=== PATIENT | male | born 1945 | race Caucasian/White ===

== ENCOUNTER → 2018-05-05 | Outpatient (CLI) | payer OTHER, BC ==
[~2018-05-05] VITALS: Ht 180.3 cm; Wt 93.0 kg
[~2018-05-05] MED LIST: AMLODIPINE BESY10 MG PO; ASPIR 8181 MG PO; ATORVASTATIN CA40 MG PO; CLONIDINE HCL0.1 MG PO; GLUCOPHAGE XR500 MG PO; IPRAT-ALBUT 0.5-3 ML INH; IRBESARTAN-HCT1 EAC1 PO; LISINOPRIL40 MG PO; SPIRIVA18 MCG INH; SYNTHROID25 MC1 PO; [UNRECOGNIZED DRUG - OTHER] PO
--- NOTE | ~2018-05-05 | P ---
[facility] [place] [address] PROCEDURE REPORT Name: RICH COTA Room #: REG [facility].#: [id number] Admission: 05/05/18 ������������������ Attend Phys: Garfield Mcfarlane MD Discharge: ������������������ Date of : 47 Report #: [id number] THIS REPORT FOR: //name// CC: Garfield Juarez MD BRIEF HISTORY: The patient is a 72-year-old male with history of colon polyps. Last colonoscopy was 10 years ago. PREOPERATIVE DIAGNOSIS: History of colon polyps. POSTOPERATIVE DIAGNOSES: 1. Multiple colon polyps. 2. Sigmoid diverticulosis coli. MEDICATIONS: Deep sedation with propofol per Anesthesia. SPECIMENS: 1. Polyp at 20 cm. 2. Polyps x 2 at 70 cm. 3. Polyp #1 proximal ascending colon. 4. Polyp #2 proximal ascending colon. 5. Polyp, hepatic flexure x 2. ESTIMATED BLOOD LOSS: 5 mL. PROCEDURE: Colonoscopy to cecum and terminal ileum with snare polypectomy, biopsy, saline elevation of polyp and Joi ink injection. FINDINGS: Prior to propofol sedation, procedure of colonoscopy discussed with the patient as well as potential risks and its complications. He indicates he understands and desires to proceed. DESCRIPTION OF PROCEDURE: With the patient in left lateral decubitus position, digital examination was completed, which revealed no abnormalities. Subsequently, the Olympus video colonoscope was introduced into the rectum and advanced under direct vision to the cecum. This was done with minimal difficulty. Upon insertion of the scope, number of polyps identified. There was a 6-7 mm sessile polyp in the distal sigmoid at 20 cm noted upon insertion of the scope. This was removed by cold snare polypectomy. At 70 cm upon introduction of the scope, 2 diminutive polyps were seen and removed with biopsy forceps. The scope was then advanced into the cecum, which was identified by the appendiceal orifice and the ileocecal valve. I was also able to advance the scope into the ileum and visualized the distal segment of the terminal ileum. At that point, the scope was slowly withdrawn and careful circumferential views were obtained. As we withdrew the scope, a diminutive polyp was seen and [facility] [address] [place] [address] PROCEDURE REPORT Name: RICH COTA Room #: REG ALYSSA Arevalo.#: [id number] Admission: 05/05/18 ������������������ Attend Phys: Garfield Mcfarlane MD Discharge: ������������������ Date of : 47 Report #: [id number] removed with cold biopsy forceps in the very proximal ascending colon. Upon further inspection, on the opposite wall, was another polyp draped over a fold. However, this was a flat polyp and was about 10-12 mm in greatest dimension. It was elevated with saline, at which point the entire polyp was visualized. It was removed in a piecemeal fashion by cold snare polypectomy. Some remaining fragments along the edges were cleaned up with cold biopsy forceps. There was good hemostasis. The scope was further withdrawn and at the hepatic flexure, 2 more flat polyps were seen. They were in the range of 8-10 mm and reamed by hot snare polypectomy. At this point, Anesthesia reported that the patient had developed a complete heart block. He was also hypotensive. Therefore, the procedure was prematurely terminated. At that point, the scope was withdrawn and careful inspection was not undertaken. Because of his hypotension, there was a need to remove the scope. The patient developed heart block during the procedure. Procedure was prematurely terminated. He was taken to recovery area in good condition. DISPOSITION: The patient is undergoing further evaluation with regard to his heart block and further workup will be determined by Anesthesia Service. INSTRUCTIONS TO THE PATIENT AND FAMILY AT THE TIME OF DISCHARGE: Multiple polyps were found today including flat polyps. This is an incomplete colonoscopy as the procedure had to be prematurely terminated prior to completion of full colonoscopy. In view of the findings of multiple flat polyps, we will have the patient return in 6 months to repeat colonoscopy. Hopefully at that time, his cardiovascular status will be fully clarified and any needed interventions will take place. He will return to care of Dr. Orlin Juarez and return to see me as needed. ADDENDUM TO COLONOSCOPY REPORT BRIEF HISTORY: The patient is a 72-year-old male who presented for colonoscopy today due to history of colon polyps. We started his colonoscopy several hours ago and removed a number of polyps. However, he developed what appeared to be complete heart block during that procedure and developed hypotension. Therefore, the colonoscopy procedure was terminated prematurely and a complete inspection of colon was not able to be done. He was taken to recovery area and is stabilized and is now in sinus rhythm with normal vital signs. Therefore, it was decided after discussion with Anesthesia to take him back and complete the colonoscopy. PREOPERATIVE DIAGNOSIS: History of colon polyps. POSTOPERATIVE DIAGNOSES: Colon polyps. [address] [address] PROCEDURE REPORT Name: RICH COTA Room #: REG ALYSSA Murphy#: [id number] Admission: 05/05/18 ������������������ Attend Phys: Garfield Mcfarlane MD Discharge: ������������������ Date of : 47 Report #: [id number] MEDICATIONS: Deep sedation with propofol per Anesthesia. SPECIMEN: In addition to the polyps on the previous report: 1. Polyp at 80 cm. 2. Polyp at 40 cm, removed by cold snare polypectomy. 3. Polyps x 2 at 35 cm, removed with biopsy forceps. 4. Pedunculated polyp at 25 cm, removed by hot snare polypectomy. DESCRIPTION OF PROCEDURE: With the patient in left lateral decubitus position, digital examination was completed, which revealed no abnormalities. Subsequently, the Olympus video colonoscope was introduced in the rectum and advanced under direct vision to the region of the hepatic flexure. A previous polypectomy site was identified. We then slowly withdrew the scope from that area to obtain a full colonoscopy. As we withdrew the scope, no abnormalities were noted until we reached 80 cm, and at that point, a diminutive polyp was seen and removed with biopsy forceps. Scope was further withdrawn, and at 40 cm, a flat polyp was seen. It was about 8 mm in greatest dimension. It was removed completely with cold snare polypectomy. At 35 cm, 2 diminutive polyps were seen and removed with biopsy forceps. The scope was further withdrawn and at 20 cm, a 10-12 mm pedunculated polyp was seen and removed with hot snare polypectomy. In addition, the patient was noted to have a moderate diverticular disease of the sigmoid colon without endoscopic evidence of diverticulitis. Scope was further withdrawn. No additional abnormalities were seen. Upon retroflexion, no abnormalities were seen. Scope was withdrawn and the patient tolerated the procedure well. CONDITION OF THE PATIENT UPON DISCHARGE: Following procedure, the patient drowsy, arousable and conversant and will be discharged home when fully ambulatory. INSTRUCTIONS TO THE PATIENT AND FAMILY AT THE TIME OF DISCHARGE: The patient has now had a complete colonoscopy. Findings as noted above. Due to the multiple polyps, especially piecemeal removal of the polyp in the proximal ascending colon, we will have him return in 2 years for followup colonoscopy. He otherwise returned to care of Dr. Orlin Juarez. ��������������������������������������������� ���������������������������������������� By: ��������������������������������������������� 1048 1214 Garfield Mcfarlane MD /nt
--- NOTE | 2018-05-05 23:35 | EKG ---
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1945 Requested By: Cheryl Reveles Order Number: [id number] MD: Terrence Brown Measurements Intervals [place] Rate: 47 P: 0 ID: 106 QRS: -57 QRSD: 143 T: -15 QT: 553 QTc: 489 Interpretive Statements Junctional rhythm RBBB and LAFB Compared to ECG 02/20/2003 07:09:24 no significant changes Electronically Signed On 05-05-2018 23:35:07 CDT by Terrence Brown [email or web address] ��������������������������������������������� <ELECTRONICALLY SIGNED> ���������������������������������������� By: Terrence Brown MD ��������������������������������������������� 05/05/18 2335 [id number] Terrence Brown MD /EPI
--- NOTE | 2018-05-07 10:07 | PATH ---
[facility] [place] [address] PATHOLOGY RPT PROCEDURE Name: RICH COTA Room #: REG Jennifer M.Dalila.#: [id number] ������������������ Admission: 05/05/18 ������������������ Date of : 47 Discharge: Report #: [id number] Path Case #: [id number] [facility] Accession Number: [id number] . 01 Material submitted: . PART A: POLYP AT 20 CM PART B: BX OF POLYP AT 70CM X2 PART C: BX OF PROX ASCENDING COLON POLYP PART D: POLYP AT PROX ASCENDING COLON #2 PART E: POLYP AT HEPATIC FLEXURE X2 PART F: BX POLYP AT 80CM PART G: POLYP AT 40CM PART H: BX POLYP AT 35CM X2 PART I: POLYP AT 25CM . 01 Clinical history: . Pre-OP DX: Hx of polyps Post-OP DX: Colon polyps, diverticulosis . 02 Diagnosis: A. Polyp, at 20 cm, endoscopic biopsy: - Tubular adenoma. - Negative for high-grade dysplasia. . B. Polyp x2, at 70 cm, endoscopic biopsy: - Tubular adenoma identified in multiple fragments. - Negative for high-grade dysplasia. . C. Polyp, proximal ascending colon polyp, endoscopic biopsy: - Tubular adenoma. - Negative for high-grade dysplasia. . D. Polyp, proximal ascending colon #2, endoscopic biopsy: - Tubular adenoma. - Negative for high-grade dysplasia. . E. Polyp x2, at hepatic flexure, endoscopic biopsy: - Three fragments showing tubular adenoma. - Negative for high-grade dysplasia. . F. Polyp, at 80 cm, endoscopic biopsy: - Tubular adenoma. - Negative for high-grade dysplasia. . G. Polyp, at 40 cm, endoscopic biopsy; - Inflamed tubular adenoma. - Negative for high-grade dysplasia. . [facility] [address] [place] [address] PATHOLOGY RPT PROCEDURE Name: RICH COTA Room #: REG [facility] M..#: [id number] ������������������ Admission: 05/05/18 ������������������ Date of : 47 Discharge: Report #: [id number] Path Case #: [id number] H. Polyp x2, at 35 cm, endoscopic biopsy: - Tubular adenoma identified in two fragments. - Negative for high-grade dysplasia. . I. Polyp, at 25 cm, endoscopic biopsy: - 1.2 cm tubulovillous adenoma. - Negative for high-grade dysplasia. - Base of polyp showing unremarkable mucosa. . (IUV:johana; 05/06/2018) MBDalila/05/06/2018 . 02 Electronically signed: . Vandana Whaley MD, Pathologist NPI- [id number] . 01 Gross description: . A. Received in formalin labeled "Rich Cota, polyp at 20 cm," is a single segment of david soft tissue measuring 0.6 cm in maximum dimension. The specimen is entirely submitted in cassette A1. . B. Received in formalin labeled "Rich Cota, BX of polyp at 70 cm x2," are 5 segments of david soft tissue measuring 1.2 x 0.8 x 0.2 cm in aggregate dimensions and ranging from 0.3 to 0.4 cm in maximum dimension. The specimen is submitted entirely in cassette B1. . C. Received in formalin labeled "Rich Cota, BX of polyp at proximal ascending colon," are 2 segments of david soft tissue measuring 0.7 x 0.3 x 0.2 cm in aggregate dimensions and ranging from 0.3 to 0.4 cm in maximum dimension. The specimen is submitted entirely in cassette C1. . D. Received in formalin labeled "Rich Cota, polyp at proximal ascending colon 2," are multiple segments of david soft tissue measuring 2.0 x 0.5 x 0.2 cm in aggregate dimensions. The specimen is filtered and entirely submitted in cassette D1. . E. Received in formalin labeled "Rich Cota, polyp at hepatic flexure x2," are 3 segments of polypoid david soft tissue measuring 1.5 x 1.3 x 0.4 cm in aggregate dimensions. The surgical margins are inked black and the specimens are sectioned perpendicular to the margins and entirely submitted in cassettes E1 through E3. . F. Received in formalin labeled "Rich Cota, BX polyp at 80 cm," is a single segment of david soft tissue measuring 0.4 cm in maximum dimension. The specimen is entirely submitted in cassette F1. . G. Received in formalin labeled "Rich Cota, polyp at 40 cm," is a [facility] [address] [place] [address] PATHOLOGY RPT PROCEDURE Name: RICH COTA Room #: ROSALBA Murphy#: [id number] ������������������ Admission: 05/05/18 ������������������ Date of : 47 Discharge: Report #: [id number] Path Case #: [id number] 1.0 x 0.5 x 0.5 cm polypoid piece of david soft tissue. The margin is inked and the specimen is sectioned perpendicular to the margin and entirely submitted in cassette G1. . H. Received in formalin labeled "Rich Cota, BX polyp at 35 cm x2," are 2 segments of david soft tissue measuring 1.0 x 0.2 x 0.2 cm in aggregate dimensions and ranging from 0.3 to 0.7 cm in maximum dimension. The specimen is submitted entirely in cassette H1. . I. Received in formalin labeled "Rich Cota, polyp at 25 cm," is a 1.2 x 0.8 x 0.9 cm polypoid piece of david soft tissue. The margin is inked and the specimen is sectioned perpendicular to the margin and entirely submitted in cassette S1mefgdug I3. (TSD; 05/05/2018) TOB/TOB . 02 Pathologist provided ICD-10: D12.6, D12.2, D12.3 . 02 CPT . 455755, 866203, 487206, 996736, 072033, 336542, 951872, 175008, 724316 Specimen Comment: A courtesy copy of this report has been sent to Specimen Comment: [phone], . Specimen Comment: Report sent to / DR SANTOS Specimen Comment: A duplicate report has been generated due to demographic updates. Performed at: [address], [place], [place] [id number] MD Jerry Shields MD Phone: [phone] Performed at: [address] [id number] MD Vandana Whaley MD Phone: [phone]
== END | disposition home or self-care (01) ==
LOC: GI 08:18
DX: Z12.11 Encounter for screening for malignant neoplasm of colon (principal); Z86.010 Personal history of colon polyps; D12.7 Benign neoplasm of rectosigmoid junction; D12.5 Benign neoplasm of sigmoid colon; D12.4 Benign neoplasm of descending colon; D12.2 Benign neoplasm of ascending colon; D12.3 Benign neoplasm of transverse colon; K57.30 Diverticulosis of large intestine without perforation or abscess without bleeding; I10 Essential (primary) hypertension; E78.5 Hyperlipidemia, unspecified; Z87.891 Personal history of nicotine dependence; Z90.49 Acquired absence of other specified parts of digestive tract; Z98.890 Other specified postprocedural states; Z79.899 Other long term (current) drug therapy; Z85.118 Personal history of other malignant neoplasm of bronchus and lung; Z79.82 Long term (current) use of aspirin
CPT/HCPCS: 62110; 62900

== ENCOUNTER 2018-06-11 09:10 | Emergency (ER) | payer OTHER, BC ==
[~2018-06-11] VITALS: Ht 180.3 cm; Wt 86.2 kg
[2018-06-11 09:11] VITALS: BP 184/77
[2018-06-11] MEDS ORDERED: CARDURA1 MG PO (09:48)
[2018-06-11] MEDS ORDERED: BYSTOLIC10 MG PO (09:48)
[2018-06-11 09:55] LABS: ABSOLUTE NEUTROPHILS 13.9 thou/uL (1.4-8.2); BASOPHILS 0.2 % (0.0-2.0); EOSINOPHILS 0.2 % (0.0-3.0); HEMATOCRIT 41.6 % (42.0-52.0); HEMOGLOBIN 14.3 gm/dL (14.0-18.0); LYMPHOCYTES 7.9 % (24.0-44.0); MCH 28.9 pg (26.0-34.0); MCHC 34.4 g/dL (28.0-37.0); MCV 84.1 fL (80.0-100.0); MONOCYTES 5.6 % (1.0-8.0); PLATELET COUNT 171 thou/uL (150-400); POLYS 86.1 % (36.0-66.0); RBC 4.95 mil/uL (4.50-6.00); RDW 14.6 % (10.5-14.5); WBC 16.2 thou/uL (4.0-11.0)
[2018-06-11 09:58] LABS: ANION GAP 13 mmol/L (7-16); BUN 23 mg/dL (7-18); CALCIUM 9.2 mg/dL (8.5-10.1); CHLORIDE 102 mmol/L (98-107); CO2 26 mmol/L (21-32); CREATININE 1.1 mg/dL (0.7-1.3); GLUCOSE 161 mg/dL (74-106); POTASSIUM 3.7 mmol/L (3.5-5.1); SODIUM 141 mmol/L (136-145)
[2018-06-11 10:08] LABS: ALBUMIN 3.7 g/dL (3.4-5.0); APTT 28.8 Seconds (24.5-32.8); MAGNESIUM 1.9 mg/dL (1.8-2.4); PROTIME 9.9 Seconds (9.3-11.4); SGOT 26 U/L (15-37); SGPT 32 U/L (30-65); TOTAL BILIRUBIN 0.7 mg/dL (<0.1-1.0); TOTAL PROTEIN 7.7 g/dL (6.4-8.2); TROPONIN-I <0.06 ng/mL (<0.06)
[2018-06-11 10:17] LABS: BE(vivo) 0.5 mmol/L (-2 to +3); HCO3 24.5 mmol/L (22.0-26.0); PCO2 37.8 mmHg (35.0-45.0); PO2 50.5 mmHg (80.0-100.0)
--- NOTE | 2018-06-11 11:34 | EKG ---
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 : 1945 Requested By: Maurilio Hughes Order Number: [id number] MD: Eddie David Measurements Intervals [place] Rate: 72 P: 51 DC: 203 QRS: -45 QRSD: 145 T: 6 QT: 436 QTc: 478 Interpretive Statements Sinus rhythm RBBB and LAFB Compared to ECG 05/05/2018 10:47:41 Electronically Signed On 06-11-2018 11:34:36 CDT by Eddie David [email or web address] ��������������������������������������������� <ELECTRONICALLY SIGNED> ���������������������������������������� By: Eddie David MD ��������������������������������������������� 06/11/18 1134 0951 0 Eddie David MD /CHARISMA
[2018-06-11] MEDS ORDERED: AUGMENTIN 875-1 EACH PO (12:54)
[2018-06-11] MEDS ORDERED: PREDNISONE 20 M20 MG PO (12:54)
[2018-06-11 13:59] VITALS: BP 147/60
== END 2018-06-11 14:33 | disposition left against medical advice (07) ==
LOC: ER 09:10 → EROBS 12:06 → ER 12:06
PROVIDERS: Emergency Medicine
DX: J18.9 Pneumonia, unspecified organism (principal); J44.9 Chronic obstructive pulmonary disease, unspecified; R79.1 Abnormal coagulation profile; R74.0 Nonspecific elevation of levels of transaminase and lactic acid dehydrogenase [LDH]; R04.2 Hemoptysis; Z85.118 Personal history of other malignant neoplasm of bronchus and lung; R09.02 Hypoxemia; D72.829 Elevated white blood cell count, unspecified; I10 Essential (primary) hypertension; E78.5 Hyperlipidemia, unspecified; E11.9 Type 2 diabetes mellitus without complications; Z90.49 Acquired absence of other specified parts of digestive tract; Z87.891 Personal history of nicotine dependence

== ENCOUNTER → 2018-06-16 | Outpatient (CLI) | payer OTHER, BC ==
[~2018-06-16] MED LIST changes: +AUGMENTIN 875-1 EACH PO; +BYSTOLIC10 MG PO; +CARDURA1 MG PO; +PREDNISONE 20 M20 MG PO
== END ==
LOC: RAD 07:44
DX: J44.9 Chronic obstructive pulmonary disease, unspecified (principal); J98.11 Atelectasis; J18.9 Pneumonia, unspecified organism

== ENCOUNTER → 2018-06-19 | Outpatient (CLI) | payer OTHER, BC | LOC: RAD 08:17 | DX: R05 Cough (principal); J18.9 Pneumonia, unspecified organism ==

== ENCOUNTER → 2019-05-04 | Outpatient (CLI) | payer OTHER, BC | LOC: SJCVC 13:55 | DX: I45.2 Bifascicular block (principal); R00.1 Bradycardia, unspecified; R94.31 Abnormal electrocardiogram [ECG] [EKG]; I10 Essential (primary) hypertension; E78.00 Pure hypercholesterolemia, unspecified; E11.9 Type 2 diabetes mellitus without complications; J44.9 Chronic obstructive pulmonary disease, unspecified; I27.20 Pulmonary hypertension, unspecified; E03.9 Hypothyroidism, unspecified; Z87.891 Personal history of nicotine dependence; Z79.899 Other long term (current) drug therapy; Z79.84 Long term (current) use of oral hypoglycemic drugs; Z79.4 Long term (current) use of insulin ==

== ENCOUNTER → 2019-05-07 | Outpatient (CLI) | payer OTHER, BC ==
[~2019-05-07] MED LIST changes: +LEVAQUIN 750 M750 MG PO
== END ==
LOC: SJCVCIMAG 08:40
DX: I08.3 Combined rheumatic disorders of mitral, aortic and tricuspid valves (principal); I11.9 Hypertensive heart disease without heart failure; I27.20 Pulmonary hypertension, unspecified; R00.1 Bradycardia, unspecified; E78.00 Pure hypercholesterolemia, unspecified; J44.9 Chronic obstructive pulmonary disease, unspecified; I44.7 Left bundle-branch block, unspecified; Z87.891 Personal history of nicotine dependence

== ENCOUNTER 2019-05-13 10:53 | Emergency (ER) | payer OTHER, BC ==
[~2019-05-13] VITALS: Ht 180.3 cm; Wt 81.7 kg
[~2019-05-13 10:53] MED LIST changes: -LEVAQUIN 750 M750 MG PO
[2019-05-13 11:50] LABS: ABSOLUTE NEUTROPHILS 6.9 thou/uL (1.4-8.2); BASOPHILS 0.7 % (0.0-2.0); EOSINOPHILS 0.4 % (0.0-3.0); LYMPHOCYTES 16.2 % (24.0-44.0); MCH 29.8 pg (26.0-34.0); MCHC 34.1 g/dL (28.0-37.0); MCV 87.2 fL (80.0-100.0); MONOCYTES 5.9 % (1.0-8.0); PLATELET COUNT 175 thou/uL (150-400); POLYS 76.8 % (36.0-66.0); RBC 5.39 mil/uL (4.50-6.00); RDW 15.2 % (10.5-14.5)
[2019-05-13 11:57] LABS: ANION GAP 9 mmol/L (7-16); BUN 19 mg/dL (7-18); CALCIUM 9.4 mg/dL (8.5-10.1); CHLORIDE 102 mmol/L (98-107); CO2 29 mmol/L (21-32); CREATININE 1.3 mg/dL (0.7-1.3); GLUCOSE 132 mg/dL (74-106); POTASSIUM 4.1 mmol/L (3.5-5.1); SODIUM 140 mmol/L (136-145)
[2019-05-13 12:07] LABS: ALBUMIN 3.6 g/dL (3.4-5.0); SGOT 19 U/L (15-37); SGPT 37 U/L (30-65); TOTAL BILIRUBIN 0.9 mg/dL (<0.1-1.0); TOTAL PROTEIN 7.8 g/dL (6.4-8.2); TROPONIN-I <0.06 ng/mL (<0.06)
[2019-05-13 12:40] VITALS: BP 152/65
[2019-05-13] MEDS ORDERED: LEVAQUIN 750 M750 MG PO (16:32)
--- NOTE | 2019-05-14 08:49 | EKG ---
[facility] [place] [address] ELECTROCARDIOGRAM REPORT Name: RICH COTA Room #: DEP M.R.#: [id number] Admission: 05/13/19 Attend Phys: Discharge: 05/13/19 Date of : 47 Report #: [id number] THIS REPORT FOR: cc: Orlin Juarez MD, Stanley P. MD Lundgren,Jean Adrian MD [facility] ~ THIS REPORT FOR: //name// [facility] ED Test Date: 2019-05-13 Test Time: 11:42:32 Pat Name: RICH COTA Department: Room: Gender: Bio Medical Technician: [facility] : 1945 Requested By: Mica Rider Order Number: [id number] MD: Jean Fagan Measurements Intervals [place] Rate: 49 P: -36 SD: 126 QRS: -61 QRSD: 133 T: 4 QT: 523 QTc: 473 Interpretive Statements Sinus bradycardia RBBB and LAFB Compared to ECG 06/11/2018 09:51:42 Heart rate has slowed Electronically Signed On 05-14-2019 8:47:44 CDT by Jean Fagan [email or web address] <ELECTRONICALLY SIGNED> By: Jean Fagan MD, FACC 05/14/19 0847 1142 1142 Jean Fagan MD, [facility] /EPI
== END 2019-05-13 12:52 | disposition left against medical advice (07) ==
LOC: ER 10:53
PROVIDERS: Nurse Practitioner Family
DX: R04.2 Hemoptysis (principal); I10 Essential (primary) hypertension; E11.9 Type 2 diabetes mellitus without complications; E03.9 Hypothyroidism, unspecified; E78.5 Hyperlipidemia, unspecified; J44.9 Chronic obstructive pulmonary disease, unspecified; Z90.49 Acquired absence of other specified parts of digestive tract; Z90.01 Acquired absence of eye; Z87.891 Personal history of nicotine dependence

== ENCOUNTER 2019-05-13 14:52 | Emergency (ER) | payer OTHER, BC ==
[~2019-05-13] VITALS: Ht 180.3 cm; Wt 99.8 kg
[2019-05-13] MEDS ORDERED: LEVAQUIN 750 M750 MG PO (16:32)
[2019-05-13 16:46] VITALS: BP 145/70
== END 2019-05-13 16:48 | disposition home or self-care (01) ==
LOC: ER 14:52
DX: J18.9 Pneumonia, unspecified organism (principal); R74.0 Nonspecific elevation of levels of transaminase and lactic acid dehydrogenase [LDH]; I10 Essential (primary) hypertension; E11.9 Type 2 diabetes mellitus without complications; E78.5 Hyperlipidemia, unspecified; E03.9 Hypothyroidism, unspecified; J44.9 Chronic obstructive pulmonary disease, unspecified; Z90.49 Acquired absence of other specified parts of digestive tract; Z85.118 Personal history of other malignant neoplasm of bronchus and lung; Z90.01 Acquired absence of eye; Z87.891 Personal history of nicotine dependence

== ENCOUNTER → 2019-06-18 | Outpatient (CLI) | payer OTHER, BC ==
[~2019-06-18] MED LIST changes: +LEVAQUIN 750 M750 MG PO
== END ==
LOC: SJCVC 12:42
DX: R94.31 Abnormal electrocardiogram [ECG] [EKG] (principal); I45.10 Unspecified right bundle-branch block; I10 Essential (primary) hypertension; E78.00 Pure hypercholesterolemia, unspecified; E11.9 Type 2 diabetes mellitus without complications

== ENCOUNTER 2019-09-02 09:21 | Inpatient (IN) | payer OTHER, BC ==
[~2019-09-02] VITALS: Ht 177.8 cm; Wt 105.4 kg
--- NOTE | ~2019-09-02 | EKG ---
[facility] [place] [address] ELECTROCARDIOGRAM REPORT Name: RICH COTA Room #: 200-I ADM IN M.R.#: [id number] Admission: 09/02/19 Attend Phys: Piter Ontiveros MD Discharge: Date of : 47 Report #: [id number] THIS REPORT FOR: cc: Orlin Juarez MD, Stanley P. MD Epiphany, Epiphany MD ~ THIS REPORT FOR: //name// [facility] Test Date: 2019-09-05 Test Time: 08:11:11 Pat Name: RICH COTA Department: Room: [facility] Gender: M Quarter Doper: Dalila ABBOTT : 1945 Requested By: Thomas Cervantes Order Number: [id number] MD: Measurements Intervals [place] Rate: 73 P: OR: QRS: -55 QRSD: 154 T: -40 QT: 508 QTc: 560 Interpretive Statements Atrial flutter RBBB and LAFB Compared to ECG 09/04/2019 17:32:58 Atrial fibrillation no longer present [email or web address] By: 0811 0 Epiphany Epiphany, /EPI
[2019-09-02 09:25] VITALS: BP 129/64
[2019-09-02 09:57] LABS: HCO3 26.1 mmol/L (22.0-26.0); PCO2 63.8 mmHg (35.0-45.0); PO2 78.5 mmHg (80.0-100.0)
[2019-09-02 10:00] LABS: HEMATOCRIT 47.8 % (42.0-52.0); HEMOGLOBIN 15.2 gm/dL (14.0-18.0); MCH 29.7 pg (26.0-34.0); MCHC 31.8 g/dL (28.0-37.0); MCV 93.6 fL (80.0-100.0); PLATELET COUNT 160 thou/uL (150-400); RBC 5.11 mil/uL (4.50-6.00); WBC 18.6 thou/uL (4.0-11.0)
--- NOTE | 2019-09-02 10:15 | NUR ---
UNABLE TO GET ADDITIONAL BLOOD NEEDED CALLED LAB
[2019-09-02 10:47] LABS: ABSOLUTE NEUTROPHILS 16.7 thou/uL (1.4-8.2); ANISOCYTOSIS 1+; PLATELET ESTIMATE NORMAL
[2019-09-02 10:53] LABS: ANION GAP 11 mmol/L (7-16); BUN 74 mg/dL (7-18); CHLORIDE 100 mmol/L (98-107); CO2 29 mmol/L (21-32); CREATININE 2.8 mg/dL (0.7-1.3); GLUCOSE 147 mg/dL (74-106); POTASSIUM 4.2 mmol/L (3.5-5.1); SODIUM 140 mmol/L (136-145)
[2019-09-02 11:02] LABS: ALBUMIN 3.3 g/dL (3.4-5.0); DIRECT BILIRUBIN 0.4 mg/dL (<0.1-0.2); SGOT 191 U/L (15-37); SGPT 189 U/L (30-65); TOTAL BILIRUBIN 0.9 mg/dL (0.2-1.0); TOTAL PROTEIN 7.4 g/dL (6.4-8.2); TROPONIN-I <0.06 ng/mL (<0.06)
[2019-09-02 11:26] LABS: BE(vivo) -3.9 mmol/L (-2 to +3); HCO3 24.2 mmol/L (22.0-26.0); PCO2 55.6 mmHg (35.0-45.0); PO2 107.6 mmHg (80.0-100.0); sO2 97.1 % (92.0-98.0)
[2019-09-02 11:27] LABS: pH 7.256 (7.360-7.450)
[2019-09-02] MEDS ORDERED: EDARBYCLOR 40-1 EAC1 PO (11:57)
[2019-09-02 13:40] LABS: CHOLESTEROL 98 mg/dL (<200); HDL CHOLESTEROL 20 mg/dL (>40); LDL CHOLESTEROL 35 mg/dL (<100); TC:HDL 4.9 Ratio (Not establshd); TRIGLYCERIDE 218 mg/dL (<150); VLDL 44 mg/dL (<40)
--- NOTE | 2019-09-02 15:38 | EKG ---
[facility] [place] [address] ELECTROCARDIOGRAM REPORT Name: RICH COTA Room #: 170-12 ADM IN M.R.#: [id number] Admission: 09/02/19 Attend Phys: Piter Ontiveros MD Discharge: Date of : 47 Report #: [id number] THIS REPORT FOR: cc: Orlin Juarez MD, Stanley P. MD Couchonnal, Luis F. MD ~ THIS REPORT FOR: //name// [facility] ED Test Date: 2019-09-02 Test Time: 09:53:52 Pat Name: RICH COTA Department: Room: 170 Gender: M Tilesetter: kf : 1945 Requested By: Yuly Zaragoza Order Number: [id number] MD: Eddie David Measurements Intervals [place] Rate: 41 P: ND: QRS: -45 QRSD: 164 T: 3 QT: 633 QTc: 523 Interpretive Statements Sinus rhythm RBBB and LAFB Compared to ECG 05/13/2019 11:42:32 Electronically Signed On 09-02-2019 15:38:17 CDT by Eddie David [email or web address] <ELECTRONICALLY SIGNED> By: Eddie David MD 09/02/19 1538 0953 0953 Eddie David MD /EPI
[2019-09-02 21:39] VITALS: BP 116/72
[2019-09-02 22:02] VITALS: BP 134/55
[2019-09-02 22:45] VITALS: BP 103/58
[2019-09-03] VITALS (50 sets, daily range): BP systolic 92–132; BP diastolic 37–56
--- NOTE | 2019-09-03 00:05 | NUR ---
PT ADMITTED FROM ED. PT WAS BROUGHT TO ED BY HIS DAUGHTER SAMMI THAT HE LIVES WITH. SHE REPORTED THAT HE HAD BEEN SOA FOR A WEEK AND WAS INITIALLY REFUSING TO GO TO HOSPITAL. DAUGHTER REPORTS THAT PT EQUATES WITH THE HOSPITAL DUE TO HIS BEING FREQUENTLY ILL AND IN HOSPITALS AND SHE . DAUGHTER REPORTS PT CAN BE NONCOMPLIANT. DAUGHTER IS A RESPIRATORY THERAPIST BY EDUCATION BUT NOT PRACTICING, SHE REPORTED HAVING EPILEPSY. PT IS DISHEVLED, CLOTHES WERE DIRTY AND WET WHEN HE ARRIVED IN ED, AND HIS L ARTIFICIAL EYE WAS MATTED. WHEN IN ED O2 SAT ON ROOM AIR WAS 59%, HE WAS PLACED ON BIPAP WITH AN ATTEMPT TO WEAN TO 6LNC BUT O2 SAT DECREASED TO 75%. NO FEVER. PT RECEIVED ANTIBIOTICS, LASIX IN ED. PT REPORTS PREVIOUS TESTS FOR COVID THAT RESULTED NEGATIVE AND DAUGHTER CONFIRMED. PT AOX3, POOR HISTORIAN, PT REPORTS VERY [place], PT ON BIPAP DIFFICULT TO COMMUNICATE AND SOA WITH TALKING AND MOVEMENT. PT DID ASSIST WITH REPOSITIONING IN THE BED. EXTREMITIES COOL TO THE TOUCH, PALE SKIN TONE. SKIN INTACT. ED NURSE REPORTED PT CHOKED AFTER DRINK OF WATER, RECOMMENDS PT HAS SPEECH CONSULT AND PROVIDER SUPERCHARGE REPAIR SUPERVISOR WILL BE NOTIFIED. MED HX CHF, HTN, PT REPORTS LOW HR HISTORY, L ARTIFICIAL EYE, DM, COPD, R UPPER LOBECTOMY DUE TO CANCER, PT WAS A FROMER SMOKER. SCDS AND BED ALARM ON.
--- NOTE | 2019-09-03 03:01 | NUR ---
PT NOTED TO BE USING INCREASED ACCESSORY MUSCLES WHILE BREATHING ON BIPAP, O2 SAT 88. WAVEFORM CONSISTENT. RESPIRATORY CONTACTED. CHARGE AND DIGITAL STRATEGY DIRECTOR UPDATED, HEDGE FUND TRADER UPDATED. NEW ORDERS OBTAINED.
[2019-09-03 03:45] LABS: HCO3 25.3 mmol/L (22.0-26.0); PCO2 53.1 mmHg (35.0-45.0); sO2 89.5 % (92.0-98.0)
[2019-09-03 03:46] LABS: pH 7.296 (7.360-7.450)
--- NOTE | 2019-09-03 04:15 | NUR ---
PATIENT TRANSFERED FROM BY ELENI BEST. ACCOMPANIED BY RT AND LUCILA VASQUEZ. PT WAS BROUGHT DOWN ON BIPAP, TACHPYNIC IN THE 40'S, SATING 88-91%. PT TRANSFERED TO ICU BED. ATTACHED TO MONITOR. ASSESSED PER ICU PROTOCOL. DR. NICOLAS CONSULTED, CRITICAL ABG'S REPORTED. NEW ORDERS OBTAINED.
--- NOTE | 2019-09-03 04:29 | NUR ---
PT VERBALIZED UNDERSTANDING OF TRANSFER TO ICU, PTS DAUGHTER SAMMI CALLED AND PROVIDED UPDATE RE NEED FOR TRANSFER TO ICU FOR CONTINUED MONITORING AND RESPIRATORY NEEDS. REPORT PROVIDED TO ICU NURSE. ABG RESULTS WILL BE CALLED BY ICU NURSE TO PULMONARY DURING CONSULT NOTIFICATION.
[2019-09-03 06:21] LABS: HEMOGLOBIN 14.6 gm/dL (14.0-18.0); MCH 29.6 pg (26.0-34.0); MCHC 32.6 g/dL (28.0-37.0); MCV 90.8 fL (80.0-100.0); RBC 4.95 mil/uL (4.50-6.00); RDW 17.4 % (10.5-14.5)
[2019-09-03 06:38] LABS: CALCIUM 7.7 mg/dL (8.5-10.1); CREATININE 2.6 mg/dL (0.7-1.3); POTASSIUM 4.2 mmol/L (3.5-5.1)
--- NOTE | 2019-09-03 08:16 | EKG ---
[facility] [place] [address] ELECTROCARDIOGRAM REPORT Name: RICH COTA Room #: 243-P ADM IN M.R.#: [id number] Admission: 09/02/19 Attend Phys: Piter Ontiveros MD Discharge: Date of : 47 Report #: [id number] THIS REPORT FOR: cc: Orlin Juarez MD, Stanley P. MD Lundgren, Craig H. MD [facility] ~ THIS REPORT FOR: //name// [facility] Test Date: 2019-09-03 Test Time: 07:17:50 Pat Name: RICH COTA Department: Room: [facility] Gender: M Fructose Loader: : 1945 Requested By: Kathrin Cardozo Order Number: [id number] MD: Jean Fagan Measurements Intervals [place] Rate: 38 P: 32 RI: 194 QRS: -62 QRSD: 149 T: -1 QT: 590 QTc: 470 Interpretive Statements Sinus bradycardia Right bundle branch block Baseline wander in lead(s) V1 Compared to ECG 09/02/2019 09:53:52 RI interval has shortened Electronically Signed On 09-03-2019 8:16:21 CDT by Jean Fagan [email or web address] <ELECTRONICALLY SIGNED> By: Jean Fagan MD, [facility] 09/03/1916 6 6 Jean Fagan MD, [facility] /EPI
--- NOTE | 2019-09-03 10:26 | NUR ---
CALLED PATIENT'S DAUGHTER BACK SINCE I HAD MISSED HER CALL, DAUGHTER KHUSHI EXPRESSED HER FRUSTRATION REGARDING NOT BEING ABLE TO COME VISIT HER FATHER. I EXPLAINED TO HER THE SITUATION AND THAT AT THIS TIME NO VISITORS BEING ALLOWED TO ICU DUE TO THE PANDEMIC, STILL DIDN'T SEEM TO UNDERSTAND, GAVE HER THE PRIVACY CODE, ANSWERED HER QNS, AND UPDATED HER ON HER FATHER'S CONDITION. SHE STATED SHE WOULD BE CALLING EVERY 1.5-2HRS.
--- NOTE | 2019-09-03 10:41 | NUR ---
DAUGHTER KHUSHI CALLED BACK CONCERNED ABOUT SCHEDULED BRONCHOSCOPY STATING LAST TIME HER FATHER HAD COLONOSCOPY THEY HAD TO REVERSE ANAESTHETIC DUE TO PATIENT HAVING LOW HR AND BP, I TOLD HER I WOULD LET THE PHYSICIAN KNOW.
--- NOTE | 2019-09-03 11:14 | NUR ---
DR NICOLAS NOTIFIED OF PATIENT'S +BLOOD CULTURES AND CHANGED ANTIBIOTICS AND STATED WILL CALL PATIENT'S DAUGHTER WITH UPDATES. DR. PELAEZ ALSO ROUNDED ABOUT 5MINS AFTER MARIA ISABEL AND WAS ALSO NOTIFIED OF PATIENT'S BLOOD CULTURES AND ASLO STATED WILL UPDATE DAUGHTER.
--- NOTE | 2019-09-03 14:38 | NUR ---
PT ADMITTED RELATED TO SOA FOR A WEEK O2 RA 52% HR CHANDU. CM REVIEWED CHART AND SPOKE WITH CARE TEAM. CM CALLED AND SPOKE WITH PT'S DTR KHUSHI . SHE INDICATED THAT PT RESIDES IN A HOUSE WITH NO STEPS TO ENTER AND NONE INSIDE. DTR INDICATED THAT SHE LIVES [place] HIM. 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 SHE INDICATED PT HAS AN OLD NEBULIZER FOR HOME USE THAT HE CLEANS WITH LYSOL. SHE INDICATED NO OTHER RESP EQUIPTMENT BUT THAT DR. SANTOS HAD BEEN SPEAKING WITH THEM ABOUT MAYBE GETTING PT HOME O2. DTR INDICATED NO HH OR POST ACUTE CARE STAYS. CM O FOLLOW INDICATED WITH DC PLANNING. PT IS ON BIPAP AND PULM HAD MADE MENTION OF POSSIBLE BRONCH. CM TO FOLLOW INDICATED WITH DC PLANNING.
--- NOTE | 2019-09-03 15:07 | NUR ---
PATIENT'S DAUGHTER CALLED AGAIN WHEN I WAS ON LUNCH, I RETURNED HER CALL WHEN I GOT BACK AND UPDATED AND CONFIRMED THAT BOTH DR. PELAEZ AND DR. NICOLAS HAD CALLED AND UPDATED HER. NO CHANGES ON PATIENT ASSESSMENT, STABLE ON THE BIPAP AND VITALS STABLE AND HAS DENIED PAIN. WILL CONTINUE WITH POC.
[2019-09-04] VITALS (19 sets, daily range): BP systolic 10–126; BP diastolic 35–60
[2019-09-04 04:29] LABS: HEMATOCRIT 46.3 % (42.0-52.0); HEMOGLOBIN 15.3 gm/dL (14.0-18.0); MCH 29.2 pg (26.0-34.0); MCHC 33.1 g/dL (28.0-37.0); MCV 88.2 fL (80.0-100.0); RBC 5.25 mil/uL (4.50-6.00); RDW 16.7 % (10.5-14.5)
[2019-09-04 04:32] LABS: CALCIUM 7.6 mg/dL (8.5-10.1); CREATININE 1.9 mg/dL (0.7-1.3); POTASSIUM 3.8 mmol/L (3.5-5.1)
--- NOTE | 2019-09-04 05:20 | NUR ---
ASSESSMENTS CHARTED, MEDS CHARTED GIVEN. PATIENT RESTING EASY IN BED DURING SHIFT. DENIES PAIN. OXYGEN SATURATION DECREASES WHEN TALKING. SCDS IN PLACE. ANKLES +2 EDEMA. C[place] PATENT, TO DEPENDENT DRAINAGE. NPO DUE TO BIPAP. PLAN OF CARE IS TO HAVE A BEDSIDE BRONCHOSCOPY TODAY TO REMOVE A MUCUS PLUG. SPUTUM SAMPLES REQUESTED. FALL PRECAUTIONS IN PLACE.
--- NOTE | 2019-09-04 10:36 | NUR ---
Pt is progressing towards goals. Pt remains stable on BiPAP and maintains oxygen saturation. Per Dr Rodarte, we will move forward with weaning off BiPAP and trial nasal cannula. Bronochoscopy was done this AM and mucous plug was removed, patient tolerated well. Will continue to monitor.
--- NOTE | 2019-09-04 10:36 | NUR ---
PATIENT'S DAUGHTER CALLED AND UPDATED BY RN AND QNS ANSWERED AND CONCERNS ADDRESSED AND WILL CALL HER IN CASE OF ANY EMERGENCIES AND/OR IF PATIENT IS TRANSFERRED OUT OF ICU SO SHE CAN VISIT HIM.
--- NOTE | 2019-09-04 14:41 | 2DMMODE ---
[facility] [place] [address] 2 D/M-MODE ECHOCARDIOGRAM Name: RICH COTA Room #: 243-P ADM IN M.R.#: [id number] Admission: 09/02/19 Attend Phys: Piter Ontiveros MD Discharge: Date of : 47 Report #: [id number] THIS REPORT FOR: cc: Orlin Juarez MD, Stanley P. MD Mancuso, Gerald M. MD [facility] ~ APPROVED REPORT Study performed: 09/04/2019 13:14:22 EXAM: Comprehensive 2D, Doppler, and color-flow Echocardiogram Patient Location: ICU Room #: 243 Status: routine BSA: 2.22 HR: 59 bpm BP: 123/35 mmHg Rhythm: Bradycardia Other Information Study Quality: Technically Difficult Technically limited study due to inability to position patient. Indications Aortic Valve Disease Diabetes Dyspnea Hypertension/HDD 2D Dimensions RVDd: 41.64 mm LVOT Diam: 22.30 (18-24mm) Volumes Left Atrial Volume (Systole) Single Plane 4CH: 76.86 mL Single Plane 2CH: 67.10 mL LA ESV Index: 36.00 mL/m2 Aortic Valve AoV Peak Bong.: 2.58 m/s AO Peak Gr.: 26.59 mmHg LVOT Max P.19 mmHg AO Mean Gr.: 13.63 mmHg LVOT Mean P.07 mmHg AO V2 Mean: 1.70 m/s LVOT Max V: 1.03 m/s [facility] [address] [place] [address] 2 D/M-MODE ECHOCARDIOGRAM Name: RICH COTA Room #: 243-P [facility] IN M.R.#: [id number] Admission: 09/02/19 Attend Phys: Piter Ontiveros MD Discharge: Date of : 47 Report #: [id number] AO V2 VTI: 58.75 cm LVOT Mean V: 0.65 m/s TRACE (VTI): 1.61 cm2 LVOT V1 VTI: 24.18 cm TRACE Vmax: 1.55 cm2 SV (LVOT): 94.39 mL Mitral Valve E/A Ratio: 1.1 MV Decel. Time: 269.50 ms MV E Max Bong.: 1.36 m/s MV A Bong.: 1.20 m/s MV PHT: 78.15 ms IVRT: 69.20 ms Pulmonary Vein P Vein S: 0.44 m/s P Vein A: 0.23 m/s P Vein D: 0.73 m/s P Vein A Dur.: 110.7 msec P Vein S/D Ratio: 0.60 Tricuspid Valve TR Peak Bong.: 3.48 m/s TR Peak Gr.: 48.37 mmHg PA Pressure: 58.00 mmHg Left Ventricle The left ventricle is normal size. There is normal left ventricular wall thickness. Left ventricular systolic function is hyperdynamic. LVEF is 60 -65% This study is not technically sufficient to allow evaluation of the LV diastolic function. Right Ventricle The right ventricle is normal size. The right ventricular systolic function is normal. Atria Left atrium is dilated. Right atrium is dilated. Aortic Valve The aortic valve is normal in structure. Aortic valve is calcified. No aortic regurgitation is present. Mild aortic stenosis. Mitral Valve The mitral valve is normal in structure. Trace mitral regurgitation. No evidence of mitral valve stenosis. Tricuspid Valve The tricuspid valve is normal in structure. There is mild tricuspid [facility] [address] [place] [address] 2 D/M-MODE ECHOCARDIOGRAM Name: RICH COTA Room #: 243-P ADM IN M.R.#: [id number] Admission: 09/02/19 Attend Phys: Piter Ontiveros MD Discharge: Date of : 47 Report #: [id number] regurgitation. Estimated PAP 58 mmHg. There is moderate pulmonary hypertension. Pulmonic Valve The pulmonary valve is normal in structure. There is no pulmonic valvular regurgitation. Great Vessels The aortic root is normal in size. IVC is not well visualized. Pericardium There is no pericardial effusion. <Conclusion> The left ventricle is normal size. LVEF is 60 -65% This study is not technically sufficient to allow evaluation of the LV diastolic function. The right ventricle is normal size. Left atrium is dilated. Right atrium is dilated. The aortic valve is normal in structure. Aortic valve is calcified. Mild aortic stenosis. Trace mitral regurgitation. There is mild tricuspid regurgitation. Estimated PAP 58 mmHg. There is moderate pulmonary hypertension. The aortic root is normal in size. There is no pericardial effusion. <ELECTRONICALLY SIGNED> By: Thomas Cervantes MD, FACC 09/04/19 1441 144 144 Thomas Cervantes MD, FACC /INF
--- NOTE | 2019-09-04 16:01 | NUR ---
PT HAD BRONCH DONE THIS DAY AND TOLERATED IT WELL PT HAD ECHO WELL. OT ASSESSED PT AND INDICATED ON GOING ASSESSEMT INDICATED. PT VARIENCED PT HAD STILL BEEN PN BIPAP AT TIME OF VISIT. THEY WILL SEE AGAIN TOMORROW. CM TO FOLLOW INDICATED WITH DC PLANNING.
--- NOTE | 2019-09-04 16:53 | NUR ---
Patient went into afib rvr at 1530. Patient is tachycaradic, running in the 110's and then 100's. Dr Cervantes was paged and ordered an amiodarone bolus and gtt. He also ordered a stat ekg and a morning ekg. Patients daughter, Barbara, visited today and was updated of the patient's plan. Patient is progressing toward goals of maintaining oxygen saturation.
[2019-09-05] VITALS (8 sets, daily range): BP systolic 102–128; BP diastolic 40–77
[2019-09-05 00:06] LABS: HIV ANTIBODY Non Reactive (Non Reactive)
--- NOTE | 2019-09-05 01:57 | NUR ---
ASSESSMENT DOCUMENTED.PT BEEN RESTING IN NO ACUTE DISTRESS.A/OX4 WITH FROGETFULLNESS AD=ND INTERMITTENT CONFUSION,TALKS TO SELF AT TIMES.ON AMIODARONE DRIP AT0.5MG/HR,HR IN 80S AND SOMETIMES SPIKES TO TACHY.IN AND OUT OF AFIB TO SINUS ARRYTHMIAS.O2 AT 5LITERS PNC.HAD BIPAP FOR 30MINUTES,COULD NOT TOLERATE IT.DENIES PAIN OR ANY DISTRESS AT THIS TIME.PT TO MOVE TO CCU RM 200. WILL CONT TO MONITOR PER POC.
--- NOTE | 2019-09-05 02:42 | NUR ---
Pt became very agitated and argumentative when he was told that he would be moving to another room in the hospital. He would not redirect, we spoke to his daughter, who spoke to her brother, and it was agreed that the pt was to stay in the hospital, that they would not come to get him this morning. He finally did calm down, after receiving haldol and was transferred to 200 with all his belongings.
--- NOTE | 2019-09-05 02:53 | NUR ---
PT MOVED TO CCU AT THIS TIME.PT VERY AGITATED ABOUT THE MOVE TO ANOTHER UNIT,THREATENING TO LEAVE AGAINST MEDICA ADVISE.DAUGHTER KHUSHI WAS NOTIFIED OF THE MOVE,TALKED WITH THE PATIENT ON THE PHONE.ELECTRICAL SYSTEMS ENGINEER ORDERED MEDS TO HELP CALM PATIENT DOWN.MEDS GIVEN ORDERED.PT CALM AT THE TIME OF THE TRANSFER.
--- NOTE | 2019-09-05 05:34 | NUR ---
ASSESSMENTS CHARTED, MEDS CHARTED GIVEN. PATIENT AND FAMILY WERE VERY UPSET AT START OF SHIFT CONCERNING CARES DURING THE DAY. FAMILY WAS CONCERNED PATIENTS NEEDS WERE NOT BEING TAKEN CARE OF IN A TIMELY MANNER. BOTH PATIENT AND FAMILY WERE REASSURED THAT IT PROGRAMMER WOULD BE ATTENTIVE TO THE PATIENTS NEEDS. PATIENT SAT IN THE RECLINER UNTIL TIME FOR BED. PATIENT WAS IN SINUS ARRHYTHMIA TO SINUS FLUTTER DURING SHIFT. FEET AND LEGS STILL EDEMATOUS. ON 6 LITERS NC. LUNGS ARE DIMINISHED AND COARSE. GOOD COUGH EFFORT. CLEVEL[place] IN PLACE, TO DEPENDENT DRAINAGE. DENIED PAIN. FALL PRECAUTIONS IN PLACE DURING SHIFT.
--- NOTE | 2019-09-05 05:46 | NUR ---
PATIENT ARRIVED FROM ICU AROUND 0300. ASSESSMENT CHARTED. MEDS CHARTED GIVEN. PATIENT CONTINUED ON 6 LITERS OXYGEN, LUNGS ARE COARSE AND DIMINISHED WITH NON-PRODUCTIVE COUGH. CLEVELAND IN PLACE STAT LOCK REPLACE IMMEDIATELY TAB WAS DISCONNECTED. PATIENT ON AMIO DRIP. PATIENT AFIB ON TELEMETRY. ALERT AND ORIENTED. HAS LEFT PROSTHETIC EYE. FALL PRECAUTIONS IN PLACE DURING SHIFT.
[2019-09-05 09:54] LABS: CALCIUM 7.6 mg/dL (8.5-10.1); CREATININE 1.8 mg/dL (0.7-1.3); POTASSIUM 3.6 mmol/L (3.5-5.1)
--- NOTE | 2019-09-05 16:03 | NUR ---
ASSUMED CARE AT CHANGE OF SHIFT. ALERT X3 WITH CONFUSION, COMPLAINT WITH CARES, DENIES PAIN, DENIES SOB, SINUS CHANDU IN THE LOW 40'S ASYMPTOMATIC. CARDIOLOGY COLLAR RUNNER SANDER NOTIFIED. BM TODAY. STAND BY ASSIST TO TOILET. COARSE LUNGS SOUNDS TO ALL LOBES, 6L NASAL CANNULA. PT AND DTR ASKING WHEN WILL HE DC HOME. CM WILL FOLLOW UP ON DC MEDICAL RESEARCH SCIENTIST. FALL PRECATIONS IN PLACE. PERSONAL ITEMS AND CALL LIGHT IN REACH.
[2019-09-06 04:25] VITALS: BP 141/87
--- NOTE | 2019-09-06 05:21 | NUR ---
ASSUMED CARE FROM DAY SHIFT PT CALM COOPERATIVE NO CONCERNS VOICED . AFTER 0200 PT STATES HE DO NOT UNDERSTAND WHY HE KEPT HERE IN HOSPITAL AND HAVE NOT SEEN A DOCTOR. EXPLAIN PT THAT HE HAD SEEN THE HEART DOCTOR AND HOSPTIALIST. PT VERY AGRUMENTATIVE AND DAUGHTER CALLED AND VERY RUDE AND AGRUMENTIVE ALSO. CALMLY EXPLAINED TO PT AND DAUGHTER THAT IT IS UP TO THE DOCTOR IF HE CAN GET DISCHARGE AND THAT I DID NOT HAVE THE POWER TO DO SO. DNEIS SOA , BUT AUDIBLE RHNONCI NOTED AND PT IS ON 02 , AERONAUTICAL DESIGN ENGINEER SHOWS NSR . WILL CONITINUE WITH CURRENT PLAN OF CARE AND WILL REPORT CHANGES.
[2019-09-06 07:55] VITALS: BP 129/58
[2019-09-06 08:29] LABS: HEMATOCRIT 42.9 % (42.0-52.0); HEMOGLOBIN 13.9 gm/dL (14.0-18.0); MCH 29.1 pg (26.0-34.0); MCHC 32.5 g/dL (28.0-37.0); MCV 89.6 fL (80.0-100.0); RBC 4.78 mil/uL (4.50-6.00); RDW 17.5 % (10.5-14.5); WBC 13.8 thou/uL (4.0-11.0)
[2019-09-06 16:36] VITALS: BP 129/57
--- NOTE | 2019-09-06 18:41 | NUR ---
ASSUMED CARE OF PT AT SHIFT CHANGE. ASSESSMENTS CHARTED. MEDS GIVEN PER APR. PT A&OX4, HARD OF HEARING. NO C/O PAIN OR SOA. PT ON 5L NC. DAUGHTER OCCASIONALLY AT BEDSIDE. SAT IN CHAIR FOR A SHORT TIME, BUT WANTED TO BE BACK IN BED. WILL CONTINUE TO MONITOR AND FOLLOW POC.
[2019-09-06 20:00] VITALS: BP 147/74
[2019-09-07 00:20] VITALS: BP 154/100
[2019-09-07 04:00] VITALS: BP 114/65
[2019-09-07 05:12] LABS: HEMATOCRIT 44.3 % (42.0-52.0); MCH 28.6 pg (26.0-34.0); MCHC 31.6 g/dL (28.0-37.0); MCV 90.5 fL (80.0-100.0); RBC 4.89 mil/uL (4.50-6.00); RDW 17.1 % (10.5-14.5); WBC 12.4 thou/uL (4.0-11.0)
[2019-09-07 05:21] LABS: CALCIUM 7.5 mg/dL (8.5-10.1); CREATININE 2.1 mg/dL (0.7-1.3); POTASSIUM 4.1 mmol/L (3.5-5.1)
--- NOTE | 2019-09-07 07:40 | EKG ---
[facility] [place] [address] ELECTROCARDIOGRAM REPORT Name: RICH COTA Room #: 200-I ADM IN M.R.#: [id number] Admission: 09/02/19 Attend Phys: Piter Ontiveros MD Discharge: Date of : 47 Report #: [id number] THIS REPORT FOR: cc: Orlin Juarez MD, Stanley P. MD Lundgren, Craig H. MD [facility] ~ THIS REPORT FOR: //name// [facility] Test Date: 2019-09-04 Test Time: 17:32:58 Pat Name: RICH COTA Department: Room: [facility] Gender: M Farm Operations Manager: Daniel VALENTE : 1945 Requested By: Piter Ontiveros Order Number: [id number] MD: Jean Fagan Measurements Intervals [place] Rate: 99 P: [place]: QRS: -43 QRSD: 149 T: -7 QT: 399 QTc: 513 Interpretive Statements Atrial fibrillation RBBB Compared to ECG 09/03/2019 07:17:50 Atrial fibrillation is now present Electronically Signed On 09-07-2019 7:40:48 CDT by Jean Fagan [email or web address] <ELECTRONICALLY SIGNED> By: Jean Fagan MD, [facility] 09/07/19 0740 1732 1732 Jean Fagan MD, [facility] /EPI
--- NOTE | 2019-09-07 07:47 | EKG ---
[facility] [place] [address] ELECTROCARDIOGRAM REPORT Name: RICH COTA Room #: 200-I ADM IN M.R.#: [id number] Admission: 09/02/19 Attend Phys: Piter Ontiveros MD Discharge: Date of : 46 Report #: [id number] THIS REPORT FOR: cc: Orlin Juarez MD, Stanley P. MD Lundgren,Jean Adrian MD [facility] ~ THIS REPORT FOR: //name// [facility] Test Date: 2019-09-05 Test Time: 08:11:11 Pat Name: RICH COTA Department: Room: 200 I Gender: M Change House Attendant: Dalila ABBOTT : 1945 Requested By: Kathrin Cardozo Order Number: [id number] MD: Jean Fagan Measurements Intervals [place] Rate: 73 P: [place]: QRS: -55 QRSD: 154 T: -40 QT: 508 QTc: 560 Interpretive Statements Atrial flutter RBBB and LAFB Compared to ECG 09/04/2019 17:32:58 No significant change was found Electronically Signed On 09-07-2019 7:47:18 CDT by Jean Fagan [email or web address] <ELECTRONICALLY SIGNED> By: Jean Fagan MD, [facility] 09/07/19 0747 0 0 Jean Fagan MD, [facility] /EPI
[2019-09-07 08:00] VITALS: BP 100/80
[2019-09-07 08:25] VITALS: BP 100/80
--- NOTE | 2019-09-07 11:30 | NUR ---
Case discussed with the care team. Pt now on CCU. He continues with ivatb/iv sterids. His oxygen has been weaned down to 3lnc this am. He is up to the bathroom and will be reevaluated by therapy today. Overall improved. Pt anxious to go home soon. Will follow along should home o2 or hh be indicated.
--- NOTE | 2019-09-07 12:04 | NUR ---
RECEIVED PT'S CARE AROUND 0710; PT. ON BED; ALERT; DURING AM ASSESSMENT PT. A0X4; IRRITABLE; UPSET BECAUSE THE STUFF ASK SO MANY TIMES WHAT DAY IS IT; EDUCATED ABOUT THE REASON OF ASKING THE SAME QUESTIONS; NO ANSWER BACK; WHILE DOING PT'S ASSESSMENT RECEIVED CALL FROM DAUGHTER; PT'S DAUGHTER UPSET ASKING WHEN HER FATHER MY BE D/C; ST. "I NEED TO KNOW IF HE IS GOING TO BE DISCHARGE OR WHAT"; TRIED NOT NOTIFIED ABOUT PT'S HEALTH & POC; PT'S DAUGHTER IRRITABLE; NOT ALLOW TO STONE DRILLER HELPER TO FINISH SENTENCES; ST. "I AM ON WAY RIGHT NOW"; AFTER 1000 PER NURSE AID PT'S DAUGHTER LOOKING FOR NURSE; ADRESS TO ROOM; PT'S DAUGHTER IRRITABLE ST. "ARE WE GONNA GET WITH THE RIGHT FOOT OR NOT"; "BECAUSE YOU JUST ENTER WITH AN APTITUDE"; EXPLAINED STONE DRILLER HELPER THE NURSE AND WAS INFORMED OF PT'S DAUGHTER LOOKING FOR ME; DAUGHTER IRRITABLE; ASKED WHEN PT. WILL LEAVE; DEMANDED TO TALK WITH DOCTORS; ST. "I WANT TO KNOW WHEN IS HE LEAVING BECAUSE ONE DRDestiny SAID ONE THING AND ANOTHER OTHER"; "YESTERDAY THE DOCTOR SAID HE WILL BE DISCHARGE TODAY"; ST. "I AM GOING TO CALL THE DOCTORS DO NOT WORRY DAD"; PT'S DAUGHTER LEFT ROOM; AT 1100 ROUNDING ON PT.; PT. ON CHAIR; MONITOR LEADS OFF; WHEN TOLD THAT HE DOES NOT HAVE D/C ORDERS; UPSET; ST. "I AM LEAVING"; EDUCATED ABOUT THE IMPORTANCE OF STAYING; EDUCATED ABOUT IV ANTIBIOTICS; UPSET ST" YOU DO NOT HAVE TO WORRY ABOUT THAT" "IT IS MY PROBLEM"; "I HAVE MAKE IT WITHOUT YOU FOR 73 YEARS & I AM ALRIGHT"; REQUESTED TO LEAVE AMA; DAUGHTER NOTIFIED; PHYSICIAN NOTIFIED; PT. SIGNED AMA FORM WHILE DAUGHTER AT THE BED SIDE; IV D/C; MONITOR OFF; ASSESSMENT CHARTED; FOLLOWING POC; SIDE;
[2019-09-09 00:07] LABS: ADENOVIRUS Negative (Negative); INFLUENZA A Negative (Negative); INFLUENZA B Negative (Negative); METAPNEUMOVIRUS Negative (Negative); PARAINFLUENZA 1 Negative (Negative); PARAINFLUENZA 2 Negative (Negative); PARAINFLUENZA 3 Negative (Negative); RHINOVIRUS Negative (Negative); RSV A Negative (Negative); RSV B Negative (Negative)
== END 2019-09-07 12:19 | disposition left against medical advice (07) | DRG 871 ==
LOC: ER 09:21 → EROBS 12:04 → 3W 12:04 → ICU 12:04 → 3W 22:06 → ICU 09-03 03:30 → 2N 09-05 03:11
PROVIDERS: Emergency Medicine; Internal Medicine Pulmonary Disease; Nurse Practitioner Adult Health; Nurse Practitioner Family; Specialist; ADMIT Hospitalist; ATTEND Hospitalist
PROC: 5A09357 Assistance with Respiratory Ventilation, Less than 24 Consecutive Hours, Continuous Positive Airway Pressure (ICD-10-PCS; principal; 2019-09-02)
PROC: 5A09357 Assistance with Respiratory Ventilation, Less than 24 Consecutive Hours, Continuous Positive Airway Pressure (ICD-10-PCS; 2019-09-03)
PROC: 5A09357 Assistance with Respiratory Ventilation, Less than 24 Consecutive Hours, Continuous Positive Airway Pressure (ICD-10-PCS; 2019-09-04)
PROC: 0BC38ZZ Extirpation of Matter from Right Main Bronchus, Via Natural or Artificial Opening Endoscopic (ICD-10-PCS; 2019-09-04)
DX: A41.9 Sepsis, unspecified organism (principal); I50.33 Acute on chronic diastolic (congestive) heart failure; J96.01 Acute respiratory failure with hypoxia; J18.9 Pneumonia, unspecified organism; J96.02 Acute respiratory failure with hypercapnia; J44.0 Chronic obstructive pulmonary disease with (acute) lower respiratory infection; N17.9 Acute kidney failure, unspecified; J44.1 Chronic obstructive pulmonary disease with (acute) exacerbation; I13.0 Hypertensive heart and chronic kidney disease with heart failure and stage 1 through stage 4 chronic kidney disease, or unspecified chronic kidney disease; T17.590A Other foreign object in bronchus causing asphyxiation, initial encounter; R65.20 Severe sepsis without septic shock; E78.5 Hyperlipidemia, unspecified; E03.9 Hypothyroidism, unspecified; E11.22 Type 2 diabetes mellitus with diabetic chronic kidney disease; I35.0 Nonrheumatic aortic (valve) stenosis; X58.XXXA Exposure to other specified factors, initial encounter; N18.9 Chronic kidney disease, unspecified; Z53.29 Procedure and treatment not carried out because of patient's decision for other reasons; I48.91 Unspecified atrial fibrillation; Z20.828 Contact with and (suspected) exposure to other viral communicable diseases; Z79.01 Long term (current) use of anticoagulants; Z85.118 Personal history of other malignant neoplasm of bronchus and lung; Z90.49 Acquired absence of other specified parts of digestive tract
CPT/HCPCS: 10078; 10081; 10879

== ENCOUNTER 2019-09-07 13:35 | Inpatient (IN) | payer OTHER, BC ==
[~2019-09-07] VITALS: Ht 177.8 cm; Wt 117.9 kg
--- NOTE | ~2019-09-07 | HC ---
[facility] [place] [address] CONSULTATION Name: RICH COTA Room #: 243-P ADM IN M.R.#: [id number] Admission: 09/07/19 Attend Phys: Anthony Amezcua MD Discharge: Date of : 47 Report #: [id number] THIS REPORT FOR: cc: Orlin Juarez MD, Stanley P. MD Al-Absi, Ahmed I. MD ~ CC: Maurilio Juarez DATE OF SERVICE: 09/11/2019 REASON FOR CONSULTATION: Acute kidney injury. REASON FOR PRESENTATION: Shortness of breath. HISTORY OF PRESENT ILLNESS: This is a 74-year-old who was initially admitted on the and signed against medical advice after 3 hours. He represented with shortness of breath at that time. He was not able to take care of himself. Shortness of breath over a few weeks before his presentation. This was associated with ____. The patient was admitted initially to the CCU with a creatinine value of around 2.8. I was consulted to manage his chronic kidney disease, acute kidney injury. Upon evaluating the patient this morning, he was extremely tender in his abdomen. He had a significant drop in his hemoglobin with a significantly high phosphorus, high lactic acid. He also had significant left-sided abdominal pain. I communicated this to the primary team and asked that the patient gets a CT of abdomen and pelvis and move to the ICU with GI and surgical consultation. It turns out that the patient had a significant retroperitoneal bleeding. His daughter was at bedside when I evaluated him. The patient's creatinine continued to go up to 3.9 as of this morning. He had about 200 mL of urine yesterday; however, prior to that, he had a significant urine output. He had previous kidney problems. He has an extensive past medical history including and not limited to diabetes mellitus, hypertension, and hyperlipidemia. He is currently followed by Infectious Disease, Pulmonary Critical Care, ID, Surgery, GI team. PAST MEDICAL HISTORY: Extensive and includes the followin. Hypertension. 2. Hyperlipidemia. 3. Chronic kidney disease. 4. Hypothyroidism. 5. Lung cancer, status post lobectomy. 6. COPD. 7. Cholecystectomy. [facility] [address] [place] [address] CONSULTATION Name: RICH COTA Room #: 243-P ADM IN M.R.#: [id number] Admission: 09/07/19 Attend Phys: Anthony Amezcua MD Discharge: Date of : 47 Report #: [id number] ALLERGIES: No known drug allergies. REVIEW OF SYSTEMS: GENERAL: Significant for weakness. CARDIOVASCULAR: Significant for chest pain and palpitation. PULMONARY: Significant for shortness of breath. GASTROINTESTINAL: Significant for abdominal pain, decreased appetite, nausea. GENITOURINARY: No frequency, no urgency. MUSCULOSKELETAL: Occasional myalgias and arthralgias. NEUROLOGICAL: Significant for headache and dizziness. SOCIAL HISTORY: Denies drug or alcohol abuse. FAMILY HISTORY: No known chronic kidney disease. PHYSICAL EXAMINATION: VITAL SIGNS: Temperature is 36.2, blood pressure is 116/74. He was tachypneic. He was tachycardic. HEAD AND NECK: Elevated jugular venous pressure. CHEST: Decreased air entry bilaterally. CARDIOVASCULAR: No rub detected. ABDOMEN: Significant tenderness all over, mainly on the left lower quadrant. EXTREMITIES: Lower extremities, +1 edema. LABORATORY DATA: White blood cell count 26.1. Hemoglobin 6.5. Sodium 140, potassium 4, BUN of 104, creatinine of 3.9. ASSESSMENT, IMPRESSION AND PLAN: 1. Acute kidney injury. 2. Retroperitoneal bleeding. 3. Bacteremia. 4. Staph hominis bacteremia. 5. Diabetes mellitus. 6. Bradycardia. 7. Aortic stenosis. PLAN: 1. I discussed the above findings with the primary team and the Cardiology team. The patient will need to be moved to the Intensive Care Unit. He will need a stat CT of abdomen and pelvis given the significant drop in his hemoglobin along with hyperphosphatemia, high BUN, lactic acidosis. He will need GI consultation. 2. Discontinue Lovenox. 3. Discontinue Lasix. 4. Management of his bradycardia, as per the cardiac team. 5. Management of his bacteremia, as per the ID team. [address] [address] CONSULTATION Name: RICH COTA Room #: 243-P [facility] IN M.R.#: [id number] Admission: 09/07/19 Attend Phys: Anthony Amezcua MD Discharge: Date of : 47 Report #: [id number] 6. Transfuse. 7. We will reevaluate the patient and decide about further plans of his IV fluid and acute kidney injury. By: 1426 10 Garry Cowart MD /nt
[~2019-09-07 13:35] MED LIST changes: +EDARBYCLOR 40-1 EAC1 PO
[2019-09-07 13:40] VITALS: BP 125/60
[2019-09-07 14:09] LABS: BE(vivo) -0.6 mmol/L (-2 to +3); HCO3 25.1 mmol/L (22.0-26.0); PCO2 44.9 mmHg (35.0-45.0); PO2 94.2 mmHg (80.0-100.0); pH 7.365 (7.360-7.450); sO2 96.9 % (92.0-98.0)
[2019-09-07 14:35] LABS: ABSOLUTE NEUTROPHILS 14.4 thou/uL (1.4-8.2); BASOPHILS 0.7 % (0.0-2.0); HEMATOCRIT 45.9 % (42.0-52.0); HEMOGLOBIN 14.7 gm/dL (14.0-18.0); LYMPHOCYTES 2.9 % (24.0-44.0); MCH 28.6 pg (26.0-34.0); MCV 89.4 fL (80.0-100.0); MONOCYTES 3.1 % (1.0-8.0); PLATELET COUNT 199 thou/uL (150-400); POLYS 93.3 % (36.0-66.0); RBC 5.14 mil/uL (4.50-6.00); RDW 16.9 % (10.5-14.5); WBC 15.5 thou/uL (4.0-11.0)
[2019-09-07 14:38] LABS: ANION GAP 15 mmol/L (7-16); BUN 95 mg/dL (7-18); CHLORIDE 104 mmol/L (98-107); CO2 30 mmol/L (21-32); GLUCOSE 214 mg/dL (74-106); POTASSIUM 4.2 mmol/L (3.5-5.1); SODIUM 149 mmol/L (136-145)
[2019-09-07 14:49] LABS: ALBUMIN 3.1 g/dL (3.4-5.0); SGOT 51 U/L (15-37); SGPT 86 U/L (30-65); TOTAL BILIRUBIN 0.8 mg/dL (0.2-1.0); TOTAL PROTEIN 6.7 g/dL (6.4-8.2); TROPONIN-I <0.06 ng/mL (<0.06)
--- NOTE | 2019-09-07 16:29 | NUR ---
PT'S DAUGHTER CALLS TO CHECK ON HIM. SHE STATES THAT HE IS HARD OF HEARING AND THAT IF WHEN HE DOCTORS ROUND THEY WOULD HAVE HIM CALL HER BEACUSE HE MAY NOT BE HEARING EVERYTING THAT IS BEING SAID TO HIM AND THAT WAY SHE CAN ALSO BE AWARE OF HIS CARES
[2019-09-07 17:10] VITALS: BP 129/55
[2019-09-07 18:15] VITALS: BP 140/57
--- NOTE | 2019-09-07 18:17 | NUR ---
PT CARE ASSUMED APPROX 181. PT DENIES PAIN AND SOA. VSS. UP WITH MIN ASSIST. PT EDUCATED TO CALL FOR ASSISTANCE WITH TRANSFERS AND AMBULATION. PT AGREEABLE. NO DISTRESS NOTED. PLACED ON TELE.
[2019-09-07 20:38] VITALS: BP 117/70
[2019-09-08 00:52] VITALS: BP 102/49
[2019-09-08 03:13] LABS: HEMOGLOBIN 14.5 gm/dL (14.0-18.0); MCH 29.2 pg (26.0-34.0); MCHC 32.9 g/dL (28.0-37.0); MCV 88.8 fL (80.0-100.0); RBC 4.96 mil/uL (4.50-6.00); RDW 16.9 % (10.5-14.5); WBC 9.1 thou/uL (4.0-11.0)
[2019-09-08 03:26] LABS: CALCIUM 7.9 mg/dL (8.5-10.1); CREATININE 1.9 mg/dL (0.7-1.3); MAGNESIUM 3.4 mg/dL (1.8-2.4); POTASSIUM 3.7 mmol/L (3.5-5.1)
[2019-09-08 05:42] VITALS: BP 139/60
[2019-09-08 07:17] VITALS: BP 118/65
--- NOTE | 2019-09-08 07:30 | EKG ---
[facility] [place] [address] ELECTROCARDIOGRAM REPORT Name: RICH COTA Room #: 209-P ADM IN M.R.#: [id number] Admission: 09/07/19 Attend Phys: Anthony Amezcua MD Discharge: Date of : 47 Report #: [id number] THIS REPORT FOR: cc: Orlin Juarez MD, Stanley P. MD Lundgren, Craig H. MD [facility] ~ THIS REPORT FOR: //name// [facility] [place] ED Test Date: 2019-09-07 Test Time: 13:44:02 Pat Name: RICH COTA Department: Room: 209 Gender: M Upstream Biomanufacturing Technician: EZRA : 1945 Requested By: Iona Leblanc Order Number: [id number] MD: Jean Fagan Measurements Intervals [place] Rate: 51 P: 16 ME: 181 QRS: -61 QRSD: 159 T: 12 QT: 511 QTc: 471 Interpretive Statements Sinus rhythm Probable left atrial enlargement RBBB and LAFB Baseline wander in lead(s) I,II,aVR Compared to ECG 09/05/2019 08:11:11 Atrial flutter no longer present Electronically Signed On 09-08-2019 7:30:46 CDT by Jean Fagan [email or web address] <ELECTRONICALLY SIGNED> By: Jean Fagan MD, [facility] 09/08/19 0730 1344 1344 Jean Fagan MD, [facility] /EPI
--- NOTE | 2019-09-08 07:49 | NUR ---
ASSESSMENTS CHARTED, MEDS CHARTED GIVEN. PATIENT HAD LEFT EARLIER IN THE DAY AMA. FAMILY CONVINCED HIM TO RETURN TO CONTINUE CARE. PATIENT ARRIVED PRIOR TO SHIFT CHANGE BUT HAD NOT BEEN ADMITTED YET. PATIENT WAS ADMITTED, IN COMPUTER SYSTEM. CARE WAS RESUMED. FALL PRECAUTION IN PLACE DURING SHIFT. DENIED PAIN.
[2019-09-08 11:18] VITALS: BP 139/59
--- NOTE | 2019-09-08 15:31 | NUR ---
ASSUMED CARE OF PT AT SHIFT CHANGE. ASSESSMENTS CHARTED. MED GIVEN PER APR. PT A&OX4, HARD OF HEARING. DAUGHTER PERIODICALLY AT BEDSIDE, WANTS TO BE CALLED DURING DRS ROUNDS. CRITICAL HIGH LACTIC ACID OF 4.[address] WAS NOTIFIED, DID NOT PROVIDE NEW ORDERS. WILL CONTINUE TO MONITOR.
[2019-09-08 16:32] VITALS: BP 146/71
[2019-09-08 19:47] VITALS: BP 132/60
[2019-09-09 04:45] VITALS: BP 140/60
[2019-09-09 07:35] VITALS: BP 132/76
--- NOTE | 2019-09-09 07:39 | NUR ---
ASSESSMENTS CHARTED, MEDS CHARTED GIVEN. PATIENT IS GETTING ANXIOUS TO GET OUT OF HERE. STATES HE IS LEAVING ONE WAY OR ANOTHER. DENIED PAIN. FALL PRECAUTIONS IN PLACE DURING SHIFT.
[2019-09-09 08:10] LABS: CALCIUM 8.5 mg/dL (8.5-10.1); CREATININE 1.7 mg/dL (0.7-1.3); POTASSIUM 3.6 mmol/L (3.5-5.1)
[2019-09-09 12:25] VITALS: BP 145/71
--- NOTE | 2019-09-09 14:29 | NUR ---
met with patient and dtr at bedside. Patient and dtr reside together in independent home with 3 steps to enter. Dtr works at [employer] but plans to be off work to assist father. Patient does not use any assistive device at home. He does not have a walker. He does not use oxygen at home. PCP Dr Juarez, Clay Preparation Supervisor Dr Cervantes. QUALITY SYSTEMS SPECIALIST independent with adls. Discussed HH and interest in HH at [place]. No preference referal to [facility].
[2019-09-09 16:15] VITALS: BP 131/78
--- NOTE | 2019-09-09 16:51 | NUR ---
FAXED REFERRAL TO [facility] HH SPOKE WITH TAYLOR IN INTAKE SHE RECEIVED REFERRAL AND WILL ACCEPT AT [facility].
[2019-09-09 16:52] VITALS: BP 131/78
--- NOTE | 2019-09-09 20:27 | NUR ---
08:00 PT. ALERT AND RESPONDING APPROPRITALEY THIS AM TOLD ME HE WANTS TO "GO HOME SOON". DISCUSED HIS POC AND THE NEED FOR ATIBIOTOC COVERAGE BEFORE HE CAN GO HOME. CONTRACTED WITH IM TO CALL FO HELP GETTING OUT OF BED. DENIES SOB, DENIES CP.
--- NOTE | 2019-09-09 20:28 | NUR ---
11;0 PT/OT WORKED HEAVILYWITH HIM THIS AM ON MABULATION AND FEEDING HIMESLF AND SELF CARE. PT "TIRED OUT NOW", PUT HIM UP IN CHAIR AT THIS TIME. DENIES CP, DENIES SOB, ON 3L NC RIGHT NOW.
--- NOTE | 2019-09-09 20:30 | NUR ---
1600-PT BECOMES MUCH MORE CONFUSED IN THE AFTERNOON AND AGITATED. DR WRAY ORDERED XANAX FOR SUCH AND GIVEN AT THIS TIME. TRYING OTGET OUT OF BED SO CHANGED HIS LINENS AND PUTHIM BACK TO BED WITH ALARMS ON AT THIS TIME. DAUGHTER AT BEDSIDE.
[2019-09-09 20:55] VITALS: BP 104/88
--- NOTE | 2019-09-09 23:46 | NUR ---
ASSUMED CARE FROM DAY SHIFT PT VERY CONFUSED ATTEMPTING TO CLIMB OUT BED , TAKING O2 OFF AND PULLING TWITCHELL OPERATOR OFF, PT MOVED TO ROOM 201 TO BE CLOSER TO NURSING DESK. BED ALARM ON , PT CONITNUE TO CLIMB OUT OF BED. LUCILA RAVI CALLED ORDER FOR HALDOL 1MG IV , MEDICATION PT CONINTUE TO ATTEMPT TO CLIMB OUT OF BED. PT HAVE SITTER AT BED FOR SAFETY AT THIS TIME.
[2019-09-10 03:52] VITALS: BP 107/63
[2019-09-10 04:08] LABS: BE(vivo) 3.6 mmol/L (-2 to +3); PO2 64.5 mmHg (80.0-100.0); pH 7.442 (7.360-7.450); sO2 93.3 % (92.0-98.0)
--- NOTE | 2019-09-10 04:48 | NUR ---
ORACLE DBA ACTIVATED FOR DECREASED LOC AND INCREASED O2 DEMANDS. PT MEDICATED PER EMAR AND SEEMS TO BE IMPROVING. WILLIE RAVI RN [facility] TO BEDSIDE FOR ASSESSMENT.
[2019-09-10 04:58] LABS: HEMATOCRIT 28.2 % (42.0-52.0); MCH 28.7 pg (26.0-34.0); MCHC 32.4 g/dL (28.0-37.0); MCV 88.6 fL (80.0-100.0); RBC 3.18 mil/uL (4.50-6.00); RDW 17.1 % (10.5-14.5); WBC 30.3 thou/uL (4.0-11.0)
--- NOTE | 2019-09-10 05:00 | NUR ---
RAT TEAM CALLEED DUE PT SAT DECREASED TO 86 % ON 4L NC PT LOC APPEARS TO BE ALSO DECREASED, CARDIAC MONTIOR SHOWS AFIB 108. SEE RAT TEAM INTERVENTION NOTE. LUCILA OAKES NOTIFED ORDERS RECIEVED AND GIVEN. PT ALERT TO SELF SAT 99 % ON VENT MASK AT 50 %.
[2019-09-10 05:11] LABS: CALCIUM 7.8 mg/dL (8.5-10.1); MAGNESIUM 2.8 mg/dL (1.8-2.4); POTASSIUM 3.8 mmol/L (3.5-5.1)
[2019-09-10 05:26] LABS: HEMOGLOBIN 9.1 gm/dL (14.0-18.0)
[2019-09-10 05:27] LABS: CREATININE 2.8 mg/dL (0.7-1.3)
[2019-09-10 05:42] VITALS: BP 100/52
[2019-09-10 08:00] VITALS: BP 79/69
--- NOTE | 2019-09-10 09:41 | NUR ---
07:15 PT. OXYGEN SATURATIONS 89-91% NOW ON 5 LITERS AND A BREATHING TREATMENT. AMIODORONE GTT ORDERED WITH BOLUS WILL GIVE JOSE MIGUEL FOR HIS AFIB AND BETTER RATE CONTROL AND PERFUSION. CONDOM CATHTETER ON PT. BUT HE DOES PULL THINGS OFF AND IMPULISVE SO WILL MONITOR CLOSELY TODAY. IV SITE IS C,D,I NO SIGN'S OF INFILTRATION AT SITE AND BLOOD RETURN OBTIANED WHEN CHECKED PRIOR TO AMIODORONE GTT STARTED IT IS SUCH AN IRRITANT POTENTIALLY.
--- NOTE | 2019-09-10 09:44 | NUR ---
DAUGHTER AT BEDSIDE AND IS STUMBLING AROUND THIS AM WHICH i DID NOT OBSERVE YESTERDAY WHEN SHE WAS UP [facility]IT. OUR SALESPERSON WOMEN'S DRESSES OBSERVED HER STUMBLING IN THE HALLWAY AND SHE ALMOST FELL IN THE ROOM THIS WELL ON THE FLOOR. ASKED HER TO RETURN TO A CHAIR, TOOK HER VITAL SIGN'S WHICH ARE ALL NORMAL. SHE APPEARS "OFF". PT. HAS IMPROVED, LESS WORK BREATHING NOW, OXYGEN SATURATIONS ARE NOW UP TO 97%, DECREASED HIS OXYGEN DOWN TO 4L AT THIS TIME. BOLUS GIVEN OF AMIODORONE AND GTT IS NOW ON AT 33ML/HR.
[2019-09-10 11:10] VITALS: BP 102/69
--- NOTE | 2019-09-10 15:07 | NUR ---
PT. UP IN CHAIR TOLERATING SUCH, SLIGHTLY BETTER THIS AFTERNOON COGNITION BUI, FOLLOWS COMMANDS AND KNEW WHERE HE WAS. HE IS NOW ON A HIGH FLOW, HUMIDIFIED CANNULA AND OXYGEN SATURATIONS IN THE HIGH 90'S THIS AFTERNOON OVERALL. BLOOD SUGAR IS ELEVATED TODAY BUT HIS FAMILY BRINGS HIM LOTS OF SWEETS AND SODA'S REGARDLESS OF TEACHING AGAINST SUCH FOR HIS DIABETES.
[2019-09-10 15:25] VITALS: BP 96/76
--- NOTE | 2019-09-10 16:17 | NUR ---
Case discussed with the care team. Pt had rapid response with low o2 level and fall this am. On amnio gtt. Dc timeframe is uncertain. Will continue to follow for HH referral with [facility] at dc. Pt does not have any dme at home. Will reassess for o2/Rw prior to dc.
[2019-09-10 20:15] VITALS: BP 132/110
[2019-09-11 04:26] VITALS: BP 128/74
[2019-09-11 05:23] LABS: MCH 28.9 pg (26.0-34.0); MCHC 33.1 g/dL (28.0-37.0); MCV 87.1 fL (80.0-100.0); PLATELET COUNT 153 thou/uL (150-400); RBC 2.27 mil/uL (4.50-6.00); RDW 16.7 % (10.5-14.5); WBC 26.1 thou/uL (4.0-11.0)
--- NOTE | 2019-09-11 05:27 | NUR ---
ASSUMED CARE OF PATIENT AT 1900. PATIENT ON AMIODARONE DRIP. PATIENT CONVERTED TO SINUS RHYTHM AT 2218. PERIPHERAL IV INFILTRATED AT APPROXIMATELY 2230. FOUR NURSES ATTEMPTED UNSUCCESSFULLY TO RESTART IV. NOTIFIED DUE TO NEW ORDER FOR IV ABT. STATED OK TO START ABT IN AM ONCE IV ACCESS GAINED. PATIENT WAS RESTLESS THROUGH NOC AND STATED MULTIPLE TIMES THAT HE WAS GOING TO LEAVE. PATIENT ALSO THOUGHT THAT IT WAS DAY TIME. RE-ORIENTED PATIENT TO TIME/SITUATION.
[2019-09-11 05:37] LABS: HEMOGLOBIN 6.5 gm/dL (14.0-18.0)
[2019-09-11 05:38] LABS: HEMATOCRIT 19.7 % (42.0-52.0)
[2019-09-11 06:53] LABS: ALBUMIN 2.5 g/dL (3.4-5.0); CALCIUM 7.4 mg/dL (8.5-10.1); PHOSPHORUS 9.8 mg/dL (2.5-4.9); TOTAL BILIRUBIN 0.8 mg/dL (0.2-1.0)
[2019-09-11 06:55] LABS: CREATININE 3.9 mg/dL (0.7-1.3)
[2019-09-11 07:35] VITALS: BP 116/44
[2019-09-11 08:15] LABS: % SATURATION 40 % (20-39); IRON 104 ug/dL (65-175); TIBC 262 ug/dL (250-450)
[2019-09-11 08:39] LABS: ABSOLUTE RETIC COUNT 0.0811 10^6/uL; OBSERVED RETIC COUNT 3.5 % (0.6-2.6)
--- NOTE | 2019-09-11 09:05 | EKG ---
[facility] [place] [address] ELECTROCARDIOGRAM REPORT Name: RICH COTA Room #: 201- ADM IN M.R.#: [id number] Admission: 09/07/19 Attend Phys: Anthony Amezcua MD Discharge: Date of : 47 Report #: [id number] THIS REPORT FOR: cc: Orlin Juarez MD, Stanley P. MD Lundgren, Craig H. MD [facility] ~ THIS REPORT FOR: //name// [facility] Test Date: 2019-09-10 Test Time: 04:21:48 Pat Name: RICH COTA Department: Room: [facility] Gender: M Campus Administrator: ARYA : 1945 Requested By: Tabby Flores Order Number: [id number] MD: Jean Fagan Measurements Intervals [place] Rate: 115 P: [place]: QRS: -26 QRSD: 132 T: 11 QT: 402 QTc: 556 Interpretive Statements Atrial fibrillation Right bundle branch block Compared to ECG 09/07/2019 13:44:02 Sinus rhythm no longer present Electronically Signed On 09-11-2019 9:05:02 CDT by Jean Fagan [email or web address] <ELECTRONICALLY SIGNED> By: Jean Fagan MD, [facility] 09/11/19 0905 0421 0421 Jean Fagan MD, [facility] /EPI
[2019-09-11 11:12] LABS: HCO3 25.9 mmol/L (22.0-26.0); PCO2 42.6 mmHg (35.0-45.0); pH 7.402 (7.360-7.450); sO2 88.7 % (92.0-98.0)
--- NOTE | 2019-09-11 11:35 | NUR ---
Pt has been transfered to ICU d/t further decline in his condition. Nursing to update dtr Ora. Dc timeframe is uncertain. Will reassess early next week.
--- NOTE | 2019-09-11 12:09 | NUR ---
ASSESSMENT CHARTED - LABS NOTED, RENAL DOC INTO SEE PATIENT, RENAL SONO ORDERED. PT WITH MULTIPLE CONSULTS ORDERED. PT REMIANED WITHOUT IV LINE - UNABLE TO GIVE BLOOD ORDERED/ IV MEDS OR ANTIBIOTICS. SEEN BY SURGERY ORDERED. PT TO CT SCAN - RETROPERITANIAL BLEED. TRANSFERED TO ICU. ABG CALLED TO DR MARINO RESULTS OF CT SCAN. ORDEROBTAINED FOR CENTRAL LINE PT NOT ABLE TO HAVE PIIC DUE TO RENAL STATUS. SEEN BY GI DOC ORDERED. PT TO THE ICU WITH BELONGING. REPORT GIVEN TO ZAFAR. DAUGHTER AT BEDSIDE AT TIME OF TRANSFER AND AWARE THAT PT GOING TO THE ICU.
[2019-09-11 12:24] VITALS: BP 106/38; BP 126/58
--- NOTE | 2019-09-11 13:56 | NUR ---
VASCULAR ACCESS CONSULTED FOR CVAD. BEDSIDE TIMEOUT WITH TOBY KNOWLES. RIJ WAS WIDELY PATENT WITH USG. 5FR TL POWER PICC TRIMMED TO 25CM INSERTED TO 10CM EXTERNAL. STAT CXR COMPLETE, IJ IN GOOD POSITION. RELEASED FOR IMMEDIATE USE TO PAULINA KNOWLES PER PROTOCOL. PT TOLERATED WELL
[2019-09-11 14:00] LABS: APTT 31.2 Seconds (24.5-32.8); INR 1.1; PROTIME 11.1 Seconds (9.3-11.4)
[2019-09-11 14:28] VITALS: BP 106/38; BP 115/49; BP 120/51
--- NOTE | 2019-09-11 14:34 | NUR ---
Pt TRANSFERRED TO ICU. Pt ON HOLD FOR O.T. DUE TO CHANGE IN STATUS. CAN RESUME O.T. WITH NEW ORDERS WHEN/IF APPROPRIATE.
[2019-09-11 14:51] VITALS: BP 110/46; BP 115/49; BP 120/51
[2019-09-11 14:59] LABS: ABSOLUTE NEUTROPHILS 22.4 thou/uL (1.4-8.2); ANISOCYTOSIS 2+
[2019-09-11 15:00] LABS: POLYCHROMASIA OCCASIONAL
--- NOTE | 2019-09-11 15:52 | NUR ---
FAXED CLINICAL UPDATE TO [facility] HH SPOKE WITH TAYLOR IN INTAKE SHE RECEIVED UPDATE. DP TO FOLLOW.
--- NOTE | 2019-09-11 16:25 | NUR ---
ASSESSMENTS AND INTERVENTIONS DOCCUMENTED. PATIENT ARRIVED TO ICU FROM CT SCAN. PATIENT ON 3L NC. NO IV ACCESS ESTABLISHED. LIZETH RN AT BEDSIDE PREPARING TO PLACE CENTRAL LINE. LINE PLACED, BLOOD STARTED. PATIENT TAKEN FOR STAT CTA. DR STEIN AT BEDSIDE. NO NEW ORDERS. DR. MARINO CALLED, PATIENT SOUNDING WET AND COARSE. DR. MARINO STATING THAT THAT IS A SECONDARY ISSUE. PATIENT STABLE. RN CALLING DAUGHTER ARIANNA AND UPDATED HER ABOUT PATIENT CURRENT STATUS AND POC.
[2019-09-11 19:10] LABS: URINE BILIRUBIN NEGATIVE (Negative); URINE BLOOD 1+ (Negative); URINE CLARITY SL CLOUDY; URINE COLOR YELLOW; URINE GLUCOSE-RANDOM* NEGATIVE (Negative); URINE KETONES NEGATIVE (Negative); URINE LEUKOCYTES-REFLEX NEGATIVE (Negative); URINE NITRITE-REFLEX NEGATIVE (Negative); URINE PROTEIN (DIPSTICK) NEGATIVE (Negative); URINE UROBILINOGEN 0.2 E.U./dl (0.2-1.0)
[2019-09-11 19:22] LABS: HYALINE CASTS 0-3 Few /LPF (None Seen); MUCUS 0-3 Light strn/LPF (None Seen); URIC ACID CRYSTALS >10 Many /LPF (None Seen)
[2019-09-11 19:23] LABS: FINE GRANULAR CASTS 0-3 Few /LPF (None Seen); URINE WBC-REFLEX 6-15 Few /HPF (0-5)
[2019-09-11 19:24] LABS: BACTERIA-REFLEX 1-9 Few /HPF (None Seen); COARSE GRANULAR CASTS 0-3 Few /LPF (None Seen); URINE RBC 0-2 Rare /HPF (0-2)
[2019-09-11 19:30] LABS: SQUAMOUS 0-3 Few /LPF (0-3)
[2019-09-11 22:28] LABS: HEMATOCRIT 21.5 % (42.0-52.0); HEMOGLOBIN 7.3 gm/dL (14.0-18.0); MCH 29.6 pg (26.0-34.0); MCHC 34.2 g/dL (28.0-37.0); MCV 86.8 fL (80.0-100.0); RBC 2.47 mil/uL (4.50-6.00); RDW 15.3 % (10.5-14.5); WBC 20.1 thou/uL (4.0-11.0)
[2019-09-11 22:53] LABS: URINE CREATININE-RANDOM* 82.1 mg/dL; URINE PROTEIN-RANDOM* 24.3 mg/dL (<11.9)
[2019-09-12] VITALS (13 sets, daily range): BP systolic 85–131; BP diastolic 38–62
[2019-09-12 05:53] LABS: ALBUMIN 2.5 g/dL (3.4-5.0); CALCIUM 7.2 mg/dL (8.5-10.1); CREATININE 3.8 mg/dL (0.7-1.3); POTASSIUM 4.4 mmol/L (3.5-5.1)
--- NOTE | 2019-09-12 08:26 | NUR ---
ASSUMMMED PT CARE AT 1900, PT IS AWAKE, ALERT AND ORIENTED, ABLE TO MAKE OWN NEEDS, SB ON THE MONITOR, REMAINS NPO, BLOOD SUGAR STABLE, PT ON ON 10L NC, O2SATS STABLE, MEDICATION GIVEN ORDERED, UPDATED FAMILY ABT PT, DENIES PAIN, ABDOMEN TENDER TO TOUCH, ASSESSMENTS CHARTED, H&H STABLE, DENIES BEING SOB, PASSED ON REPORT TO DAY NURSE
[2019-09-12 08:46] LABS: HEMATOCRIT 21.1 % (42.0-52.0); MCH 29.2 pg (26.0-34.0); MCV 88.4 fL (80.0-100.0); RBC 2.38 mil/uL (4.50-6.00); RDW 15.7 % (10.5-14.5); WBC 25.2 thou/uL (4.0-11.0)
--- NOTE | 2019-09-12 13:44 | NUR ---
LATE NOTE: SC CONSULT FOF PATIENT WAS COMPLETED BY THIS [place]PUTY COUNTY ATTORNEY.
--- NOTE | 2019-09-12 18:25 | NUR ---
RECEIVED PT'S CARE AROUND 709; PT. ON BED; AWAKE; ALERT; DURING AM ASSESSMENT AOX4; NO C/O PAIN; NPO; EDUCATED ABOUT NPO; ST. UNDERSTANDING; REQUESTED TO CALL DAUGHTER; EDUCATED ABOUT HOW TO USE PHONE; AM MEDICATIONS GIVEN; HOLD AMIODORENO; HR BELOW 60; DURING THE MORNING BP DROP TP 90s & 80s; NO COMPLAIN OF DIZZINESS; PHYSICIAN NOTIFIED; ORDERS ON PLACED; BLOOD TRANSFUSED; NO C/O DURING TRANSFUSION; PER SURGEON OK TO RESUME DIET; DAUGHTER CALL DURING AM & PM; UPDATES GIVEN; REQUESTED TO BE CALLED BY PHYSICIANS; HOSPITALIST NOTIFIED; WILL PASS ON REPORT; SB-SR ON THE MONITOR; HAD DINNERL TOLERATED WELL; REFUSED TO CHANGE BED DUE TO MIGHT HAVE A BM LATER ON THE NIGHT; EDUCATED ABOUT FLUID RESTRICTIONS; ASSESSMENT CHARGED; FOLLOWING POC; WILL PASS ON REPORT;
[2019-09-13] VITALS (95 sets, daily range): BP systolic 84–145; BP diastolic 25–99
[2019-09-13 06:04] LABS: MCH 29.9 pg (26.0-34.0)
[2019-09-13 06:05] LABS: CALCIUM 6.8 mg/dL (8.5-10.1); POTASSIUM 5.2 mmol/L (3.5-5.1)
[2019-09-13 06:06] LABS: MCHC 33.1 g/dL (28.0-37.0); MCV 90.3 fL (80.0-100.0); RBC 1.94 mil/uL (4.50-6.00); RDW 15.2 % (10.5-14.5)
[2019-09-13 06:07] LABS: CREATININE 5.3 mg/dL (0.7-1.3)
[2019-09-13 06:14] LABS: HEMATOCRIT 17.5 % (42.0-52.0); HEMOGLOBIN 5.8 gm/dL (14.0-18.0)
--- NOTE | 2019-09-13 11:00 | EKG ---
[facility] [place] [address] ELECTROCARDIOGRAM REPORT Name: RICH COTA Room #: 243- ADM IN M.R.#: [id number] Admission: 09/07/19 Attend Phys: Anthony Amezcua MD Discharge: Date of : 47 Report #: [id number] THIS REPORT FOR: cc: Orlin Juarez MD, Stanley P. MD Lundgren, Craig H. MD [facility] ~ THIS REPORT FOR: //name// [facility] Test Date: 2019-09-13 Test Time: 07:56:53 Pat Name: RICH COTA Department: Room: [facility] Gender: M Accounts Payable Clerk: MILTON : 1945 Requested By: Jean Fagan Order Number: [id number] MD: Jean Fagan Measurements Intervals [place] Rate: 49 P: 243 [place]: 239 QRS: 17 QRSD: 143 T: 6 QT: 572 QTc: 517 Interpretive Statements Sinus bradycardia Prolonged [place] interval Right bundle branch block Compared to ECG 09/10/2019 04:21:48 Atrial fibrillation no longer present Electronically Signed On 09-13-2019 11:00:42 CDT by Jean Fagan [email or web address] <ELECTRONICALLY SIGNED> By: Jean Fagan MD, [facility] 09/13/19 1100 [id number] 0756 Jean Fagan MD, [facility] /EPI
[2019-09-13 16:48] LABS: HEMATOCRIT 20.7 % (42.0-52.0); HEMOGLOBIN 6.9 gm/dL (14.0-18.0)
--- NOTE | 2019-09-13 17:45 | NUR ---
called into pt room by primary nurse. Pt gurgling and bs coarse. + responsive. HR 40s. [address] Ott paged. Also called Dr. Magana because pt is supposed to get another unit of blood. Dr. magana states no more blood or fluids. Start Lasix gtt. Dr. Amezcua updated and wants to talk to dr. arnold regarding no blood transfusion. Stat ABG and Chest xray ordered. 1805 RT here, pt now agonal resp and minimally responsive. [address] 91% [address]. Ott on phone and is on his way. Pt intubated per RT. Code blue called. Hr down to 32 and transcient. Atropine 0.5mg given. Dr. Ott here and family updated. Stat lab sent. Xray done.
[2019-09-13 18:44] LABS: HEMATOCRIT 20.9 % (42.0-52.0); HEMOGLOBIN 6.6 gm/dL (14.0-18.0); MCHC 31.5 g/dL (28.0-37.0); MCV 94.1 fL (80.0-100.0); RBC 2.22 mil/uL (4.50-6.00)
[2019-09-13 18:46] LABS: MCH 29.7 pg (26.0-34.0); RDW 15.2 % (10.5-14.5); WBC 30.4 thou/uL (4.0-11.0)
[2019-09-13 18:47] LABS: CALCIUM 6.8 mg/dL (8.5-10.1)
[2019-09-13 18:49] LABS: CREATININE 6.7 mg/dL (0.7-1.3); POTASSIUM 6.3 mmol/L (3.5-5.1)
[2019-09-13 18:59] LABS: BE(vivo) -14.2 mmol/L (-2 to +3); HCO3 15.6 mmol/L (22.0-26.0); PCO2 59.9 mmHg (35.0-45.0); PO2 88.9 mmHg (80.0-100.0); pH 7.034 (7.360-7.450); sO2 91.8 % (92.0-98.0)
--- NOTE | 2019-09-13 19:20 | NUR ---
ASSESSMENT CHARTED. PT ALERT AND ORIENTED. PLEASANT. DENIED HAVING PAIN OR DISCOMFORT. HAD LOW BP THIS SHIFT. DR. MARINO AND DR. SCHAEFER NOTIFIED. NO NEW ORDERS. RECEIVED 1 UNIT OF BLOOD. ONE TIME LASIX GIVEN. PT HAS NOT HAVING ANY URINE OUTIME THIS SHIFT. DR. SCHAEFER NOTIFIED. NO NEW ORDERS GIVEN. PT STARTED EXPERIENCING RESPIRATORY DISTRESS AND LOW HR. CODE BLUE INITIATED. SEE CODE BLUE FLOW SHEET. NOTIFIED ON PT'S STATUS. REPORT GIVEN TO THE [facility] NURSE.
--- NOTE | 2019-09-13 19:30 | NUR ---
ASSUMED CARE OF PT. DR VERA HERE. HEART RATE DECREASED TO 36 ATROPINE AND EPI GIVEN. INTUBATED. DR VERA PLACED A LEFT JUG DIALYSIS CATH.
--- NOTE | 2019-09-13 20:30 | NUR ---
TO CAT SCAN FOR CT OF CHEST AND ABDOMEN. REMAINS INTUBATED
[2019-09-14] VITALS (106 sets, daily range): BP systolic 65–185; BP diastolic 30–128
[2019-09-14 04:31] LABS: MCH 29.5 pg (26.0-34.0); MCV 92.2 fL (80.0-100.0); PLATELET COUNT 109 thou/uL (150-400); RBC 4.13 mil/uL (4.50-6.00); RDW 14.5 % (10.5-14.5)
[2019-09-14 04:36] LABS: WBC 45.6 thou/uL (4.0-11.0)
[2019-09-14 04:37] LABS: BE(vivo) -10.1 mmol/L (-2 to +3); HCO3 18.4 mmol/L (22.0-26.0); PCO2 51.3 mmHg (35.0-45.0); PO2 62.9 mmHg (80.0-100.0); pH 7.173 (7.360-7.450); sO2 85.8 % (92.0-98.0)
[2019-09-14 04:37] LABS: HEMOGLOBIN 12.2 gm/dL (14.0-18.0)
[2019-09-14 05:02] LABS: ALBUMIN 2.2 g/dL (3.4-5.0); CALCIUM 6.9 mg/dL (8.5-10.1); CREATININE 6.5 mg/dL (0.7-1.3); TOTAL BILIRUBIN 1.2 mg/dL (0.2-1.0); TOTAL PROTEIN 4.7 g/dL (6.4-8.2)
[2019-09-14 05:05] LABS: POTASSIUM 6.5 mmol/L (3.5-5.1)
--- NOTE | 2019-09-14 06:00 | NUR ---
REMAINS INTUBATED. LUNGS COARSE. VERSED GTT 1 MG LASIX 20 MG DOPAMINE 5 MG EPI 4 MG HAD 4 UNITS OF PACKED CELLS LAST NIGHT. HGB UP TO 12.5 5 CC UO THIS SHIFT.REMAINS IN AFIB TO SINIS RHYTHM. WILL CONT TO MONITIOR. PT IS TO HAVE DIALYSIS TODAY.
[2019-09-14 06:28] LABS: ABSOLUTE NEUTROPHILS 43.3 thou/uL (1.4-8.2)
[2019-09-14 06:29] LABS: LARGE PLATELETS OCCASIONAL
[2019-09-14 07:17] LABS: INR 1.4; PROTIME 14.7 Seconds (9.3-11.4)
--- NOTE | 2019-09-14 07:55 | NUR ---
Pt TRANSFERRED TO ICU. WILL PLACE ON HOLD AND AWAIT NEW ORDERS TO RESUME WHEN APPROPRIATE
[2019-09-14 10:23] LABS: HEMATOCRIT 30.3 % (42.0-52.0); RBC 3.35 mil/uL (4.50-6.00)
[2019-09-14 10:28] LABS: MCH 30.2 pg (26.0-34.0); MCHC 33.5 g/dL (28.0-37.0); MCV 90.3 fL (80.0-100.0); RDW 14.6 % (10.5-14.5)
[2019-09-14 10:36] LABS: HCO3 23.7 mmol/L (22.0-26.0); PO2 83.5 mmHg (80.0-100.0); sO2 92.7 % (92.0-98.0)
[2019-09-14 10:39] LABS: pH 7.154 (7.360-7.450)
[2019-09-14 10:54] LABS: POTASSIUM 5.3 mmol/L (3.5-5.1)
[2019-09-14 10:55] LABS: CALCIUM 10.4 mg/dL (8.5-10.1); CREATININE 5.2 mg/dL (0.7-1.3)
[2019-09-14 10:57] LABS: HEMOGLOBIN 10.1 gm/dL (14.0-18.0); WBC 56.2 thou/uL (4.0-11.0)
--- NOTE | 2019-09-14 12:00 | NUR ---
PT STABILIZED WITH DRIPS ON dOPAMINE DECREASED AND OFF DUE TO HR 140-160. ATTEMPT TO TITRATE THE EPINE BUT UNABLE TO. lEVEPHED STILL ON AT 15 MCG. MONIOR SHOWS AFIB. PTIS NOT RESPONDING TO ANY VERBAL STIMLUS NOR DEEP PAIN. NO CHANGES TO THE VENT. WILL CONT TO MONITOR.
--- NOTE | 2019-09-14 14:13 | NUR ---
chart review, noted pt had resp code over the weekend and had another code this am. pt remains on vent, high fio2, iv gtts. had total 8units of prbc since been admitted. will cont following as needed for dc needs.
--- NOTE | 2019-09-14 14:27 | EKG ---
[facility] [place] [address] ELECTROCARDIOGRAM REPORT Name: RICH COTA Room #: 243- ADM IN M.R.#: [id number] Admission: 09/07/19 Attend Phys: Anthony Amezcua MD Discharge: Date of : 47 Report #: [id number] THIS REPORT FOR: cc: Orlin Juarez MD, Stanley P. MD Couchonnal, Luis F. MD ~ THIS REPORT FOR: //name// [facility] Test Date: 2019-09-14 Test Time: 10:15:39 Pat Name: RICH COTA Department: Room: [facility] Gender: M Lawn Specialist: HUNTER : 1945 Requested By: Marcello Ott Order Number: [id number] MD: Eddie David Measurements Intervals [place] Rate: 119 P: [place]: QRS: -89 QRSD: 163 T: 82 QT: 358 QTc: 504 Interpretive Statements Atrial fibrillation RBBB and LAFB Baseline wander in lead(s) I,III,aVL Compared to ECG 09/13/2019 07:56:53 Left anterior fascicular block now present Sinus bradycardia no longer present First degree AV block no longer present Electronically Signed On 09-14-2019 14:27:02 CDT by Eddie David [email or web address] <ELECTRONICALLY SIGNED> By: Eddie David MD 09/14/19 1427 1015 1015 Eddie David MD /EPI
--- NOTE | 2019-09-14 14:42 | NUR ---
PT STARTED DIALYSIS THIS AM. AFTER 1 HOUR AND 30 MINUTES ON DIALYSIS PT'S HR DROPPED FROM 112 TO 38. DOPAMINE WAS STOPPED AT SHIFT CHANGE PER CARDIOLOGY CONSTRUCTION SITE CROSSING GUARD FOR INCREASED HR AND INCREASED B/P. WHEN INITIAL HR DROPPED AND BLOOD PRESSURE DROPPED LEVOPHED WAS ORDERD AND STARTED. DOPAMINE WAS THEN ORDERED TO RESTART. RN CHECKED PTS PULSE AND CALLED CODE BLUE FOR NO PULSE. COMPRESSIONS STARTED APPPROXIMATEL 0945 AND CODE TEAM ARRIVED. PT'S PULMONARY DOCTOR, HOSPITALIST AND QUANTITATIVE RESEARCHER ARRIVED TO CODE. SEE CODE BLUE SHEET. PULSE WAS REGAINED. DIALYSIS WAS CONTINUED. SEE NEW ORDERS. PT REMAINS VENTED NO SEDATION IS ON AT THIS TIME. SEDATION WAS STOPPED AT START OF CODE. HR REMAINS AFIB 110-125. DR. MARINO STATES HE WILL CALL THE PT'S DAUGHTER.DR. MARINO STATED HE ATTEMPTED TO CALL HER RIGHT AFTER CODE BLUE AND SHE DID NOT ANSWER. DIALYSIS COMPLETE WITH A NET OF 100 MLS OF FLUID POSITIVE. REPORT GIVEN TO NURSE.
--- NOTE | 2019-09-14 16:30 | NUR ---
CALL TO DR. MARINO TO SEE IF HE HAD SPOKEN WITH THE DAUGTHER, HE DID NOT HAVE THE CORRECT PHONE NUMBER. cALL TO ALFREDO AND INFORMED HER OF HER FATHERS CONDITION AND TOLD HER SHE COULD COME SEE HIM, [address] VERA CALLED TO TALK TO HER. EMOTIONAL SUPPORT GIVEN AND SHE WILL SPEAK TO HER FAMILY ABOUT THE NEXT STEPS. SHE WILL CALL TOMORROW TO MAKE ARRANGEMENTS FOR THE FAMILY TO COME SEE HIM. WILL CONT TO MONITOR.
[2019-09-15] VITALS (47 sets, daily range): BP systolic 96–134; BP diastolic 42–73
--- NOTE | 2019-09-15 06:00 | NUR ---
REMAINS INTUBATED. NO SEDATION REQUIRED. PT LOOKS MUCH WORSE THIS HOUR. REMAINS A FULL CODE AT PRESENT. FAMILY TO COME THIS AM AND SAY THEIR GOOD BYES AND THEN PT TO BE MADE A DNR AND POSSIBLE COMFORT CARE. WILL CONT TO MONITOR.
--- NOTE | 2019-09-15 09:41 | NUR ---
Nutrition: Pt due for LOS however nsg reports likely plans to withdraw care. Family coming in today. Will follow POC, RD available as needed.
--- NOTE | 2019-09-15 10:07 | NUR ---
0930-'S [place] ([place]),CHUY WRAY IN. Louise MATHIS NP IN. AM LABS ORDERED WERE SENT. SPOKE W PT'S DTR. REINFORCED VISITING POLICY ENFFORCED AT THIS TIME-ONE AT A TIME, MUST WAIT IN CAR. DTR STATES THAT GR. DTR (25 YOA) DOES NOT HAVE ANY I.D. ENFORMED DTR THAT SHE WOULD NOT BE ALLOWED INTO HOSP W/O PROPER PHOTO I.D.-DTR STATED THAT SHE UNDERSTOOD,PLAN COMING ~1130.--VW
[2019-09-15 10:13] LABS: HEMATOCRIT 29.8 % (42.0-52.0); MCH 30.2 pg (26.0-34.0); MCHC 33.4 g/dL (28.0-37.0); MCV 90.5 fL (80.0-100.0); RBC 3.29 mil/uL (4.50-6.00); RDW 14.8 % (10.5-14.5)
--- NOTE | 2019-09-15 10:21 | NUR ---
patrick with [facility] , checking on status of pt dcp. cm passed on report, no plan for dc today. pt remains intubated with tube feeding nutritional support.
[2019-09-15 10:26] LABS: CREATININE 6.1 mg/dL (0.7-1.3); POTASSIUM 5.9 mmol/L (3.5-5.1); TOTAL BILIRUBIN 1.2 mg/dL (0.2-1.0); TOTAL PROTEIN 4.6 g/dL (6.4-8.2)
[2019-09-15 10:41] LABS: CALCIUM 5.5 mg/dL (8.5-10.1)
[2019-09-15 10:45] LABS: WBC 36.3 thou/uL (4.0-11.0)
[2019-09-15 11:36] LABS: BE(vivo) -1.3 mmol/L (-2 to +3); HCO3 24.1 mmol/L (22.0-26.0); PCO2 43.5 mmHg (35.0-45.0); PO2 228.7 mmHg (80.0-100.0); pH 7.361 (7.360-7.450); sO2 99.5 % (92.0-98.0)
--- NOTE | 2019-09-15 15:29 | NUR ---
THIS BAG TURNER WAS PRESENT AT THE END OF LIFE TO PROVIDE COMFORT FOR THE DAUGHTER THE PATIENT PASSED. NURSING STAFF DID AN AMAZING JOB OF COMMUNICATION AND CARE THROUGHOUT THE PROCESS. SECURITY WAS NOTIFIED OF THE OF THE PATIENT BY THIS BAG TURNER. KHUSHI, THE PATIENT'S DAUGHTER, WAS INSTRUCTED TO NOTIFY SECURITY STAFF TOMORROW ONCE THE FAMILY DECIDES ON A HOME.
[2019-09-15 18:06] LABS: HEPATITIS B SURFACE AG Negative (Negative)
== END 2019-09-15 15:10 | DRG 871 ==
LOC: ER 13:35 → ICU 14:44 → EROBS 14:44 → 2N 14:44 → ICU 09-11 11:30
PROVIDERS: Hospitalist; Internal Medicine; Nurse Practitioner Adult Health; Nurse Practitioner Family; Pediatrics; Physician Assistant; Radiology Vascular & Interventional Radiology; Specialist; Surgery; ADMIT Internal Medicine; ATTEND Internal Medicine
PROC: 30233K1 Transfusion of Nonautologous Frozen Plasma into Peripheral Vein, Percutaneous Approach (ICD-10-PCS; principal; 2019-09-11)
PROC: 30233N1 Transfusion of Nonautologous Red Blood Cells into Peripheral Vein, Percutaneous Approach (ICD-10-PCS; principal; 2019-09-11)
PROC: 02HV33Z Insertion of Infusion Device into Superior Vena Cava, Percutaneous Approach (ICD-10-PCS; principal; 2019-09-11)
PROC: 5A1945Z Respiratory Ventilation, 24-96 Consecutive Hours (ICD-10-PCS; 2019-09-13)
PROC: 02HV33Z Insertion of Infusion Device into Superior Vena Cava, Percutaneous Approach (ICD-10-PCS; 2019-09-13)
PROC: 0BH17EZ Insertion of Endotracheal Airway into Trachea, Via Natural or Artificial Opening (ICD-10-PCS; 2019-09-13)
PROC: B548ZZA Ultrasonography of Superior Vena Cava, Guidance (ICD-10-PCS; 2019-09-13)
PROC: 5A1D70Z Performance of Urinary Filtration, Intermittent, Less than 6 Hours Per Day (ICD-10-PCS; 2019-09-14)
DX: A41.1 Sepsis due to other specified staphylococcus (principal); I50.33 Acute on chronic diastolic (congestive) heart failure; J18.9 Pneumonia, unspecified organism; K66.1 Hemoperitoneum; R65.21 Severe sepsis with septic shock; J96.21 Acute and chronic respiratory failure with hypoxia; J96.22 Acute and chronic respiratory failure with hypercapnia; N17.9 Acute kidney failure, unspecified; I13.0 Hypertensive heart and chronic kidney disease with heart failure and stage 1 through stage 4 chronic kidney disease, or unspecified chronic kidney disease; E46 Unspecified protein-calorie malnutrition; K92.1 Melena; D62 Acute posthemorrhagic anemia; G93.1 Anoxic brain damage, not elsewhere classified; Z20.828 Contact with and (suspected) exposure to other viral communicable diseases; E78.5 Hyperlipidemia, unspecified; E03.9 Hypothyroidism, unspecified; E11.22 Type 2 diabetes mellitus with diabetic chronic kidney disease; R65.20 Severe sepsis without septic shock; I08.1 Rheumatic disorders of both mitral and tricuspid valves; G47.00 Insomnia, unspecified; Z68.37 Body mass index [BMI] 37.0-37.9, adult; N40.0 Benign prostatic hyperplasia without lower urinary tract symptoms; T17.990A Other foreign object in respiratory tract, part unspecified in causing asphyxiation, initial encounter; X58.XXXA Exposure to other specified factors, initial encounter; Y93.89 Activity, other specified; Y92.89 Other specified places as the place of occurrence of the external cause; Y99.8 Other external cause status; E83.42 Hypomagnesemia; R41.0 Disorientation, unspecified; D64.9 Anemia, unspecified; I48.0 Paroxysmal atrial fibrillation; N14.1 Nephropathy induced by other drugs, medicaments and biological substances; T50.8X5A Adverse effect of diagnostic agents, initial encounter; I08.3 Combined rheumatic disorders of mitral, aortic and tricuspid valves; E87.5 Hyperkalemia; J43.9 Emphysema, unspecified; R91.1 Solitary pulmonary nodule; J84.10 Pulmonary fibrosis, unspecified; Z66 Do not resuscitate; Z51.5 Encounter for palliative care; Z90.49 Acquired absence of other specified parts of digestive tract; Z85.118 Personal history of other malignant neoplasm of bronchus and lung; Z87.891 Personal history of nicotine dependence; Z91.19 Patient's noncompliance with other medical treatment and regimen; Z88.8 Allergy status to other drugs, medicaments and biological substances; Z86.010 Personal history of colon polyps; Z79.899 Other long term (current) drug therapy
CPT/HCPCS: 10078; 10081; 32100